=== PATIENT | female | born 1945 | race Caucasian/White ===

== ENCOUNTER → 2017-02-07 | Outpatient (CLI) | payer BC ==
[~2017-02-07] MED LIST: CLB100 PO; PRT/40 PO
--- NOTE | 2017-02-07 16:11 | MAMMOGRAPHY REPORT ---
BILATERAL DIGITAL SCREENING MAMMOGRAM WITH CAD: 02/07/2017 CLINICAL HISTORY: Routine screening. Patient has no complaints. TECHNIQUE: Current study was also evaluated with a Computer Aided Detection (CAD) system. Bilateral CC and MLO views were obtained. COMPARISON: Comparison is made to exams dated: 12/22/2015 mammogram, 12/03/2014 mammogram, 12/02/2013 emiliano mogram, 10/25/2012 mammogram, 10/24/2011 mammogram, and 10/18/2010 mammogram - [facility]. BREAST COMPOSITION: There are scattered areas of fibroglandular density in both breasts. FINDINGS: No suspicious masses, calcifications, or areas of architectural distortion are noted in ei ther breast. There has been no significant interval change compared to prior exams. There are stable postsurgical changes including architectural distortion from prior excisional biopsy in the right up per outer quadrant; a linear scar marker denotes a scar on the right upper outer breast. Bilateral b enign-appearing calcifications are not significantly changed. IMPRESSION: ACR BI-RADS CATEGORY 2: BENIGN There is no mammographic evidence of malignancy. A 1 year screening mammogram is recommended. The pa tient will receive written notification of the results. Approximately 10% of breast cancers are not detected with mammography. A negative mammographic report should not delay biopsy if a clinically suggestive mass is present. Wendy Sepulveda M.D. /:02/07/2017 15:39:31 Internet Manager: Sregio Kumar M, [facility] letter sent: Normal 1/2 BI-RADS Code: ACR BI-RADS Category 2: Benign
== END | disposition home or self-care (01) ==
LOC: C.MAMM 15:16
PROVIDERS: ATTEND Family Medicine
DX: Z12.31 Encounter for screening mammogram for malignant neoplasm of breast (principal)

== ENCOUNTER → 2017-04-30 | Outpatient (CLI) | payer BC ==
[~2017-04-30] MED LIST changes: +PANT40TA2 PO; -PRT/40 PO
--- NOTE | 2017-04-30 10:39 | DIAGNOSTIC IMAGING REPORT ---
CHEST 2 VIEWS ROUTINE CLINICAL HISTORY: COUGH,GASTRO-ESOPHAGEAL REFLUX dyspnea COMPARISON STUDY: 11/19/2008 FINDINGS: The bones soft tissues and hemidiaphragms are normal. The cardiomediastinal silhouette is normal. The lungs are clear. The pulmonary vasculature is normal. IMPRESSION: Negative chest. The above report was generated using voice recognition software. It may contain grammatical, syntax or spelling errors. Electronically signed by: Paul Paige M.D. 04/30/2017 10:37 AM Dictated Date/Time: 04/30/2017 10:37 AM
== END | disposition home or self-care (01) ==
LOC: C.LAB1850 10:19
PROVIDERS: ATTEND Family Medicine
DX: R05 Cough (principal); K21.9 Gastro-esophageal reflux disease without esophagitis

== ENCOUNTER 2018-01-03 12:48 | Inpatient (IN) | payer BC, OTHER ==
[~2018-01-03] VITALS: Ht 160 cm; Wt 103.0 kg
[2018-01-03 14:12] LABS: HEMATOCRIT 43.8 % (37-47); HEMOGLOBIN 14.2 g/dL (12.0-16.0); MEAN CELL VOLUME 87.8 fL (80-100); MEAN CORPUSCULAR HEMOGLOBIN 28.5 pg (25-34); MEAN CORPUSCULAR HGB CONC 32.4 g/dl (32-36); MEAN PLATELET VOLUME 10.6 fL (7.4-10.4); PLATELET COUNT 289 K/uL (130-400); RED CELL DISTRIBUTION WIDTH CV 14.9 % (11.5-14.5); RED CELL DISTRIBUTION WIDTH SD 47.4 fL (36.4-46.3)
[2018-01-03] MEDS ORDERED: COEN75CA PO (14:18)
[2018-01-03] MEDS ORDERED: MULT-190 PO (14:18)
[2018-01-03 14:24] LABS: PTT PATIENT 23.8 SECONDS (21.0-31.0)
[2018-01-03 14:36] LABS: ALBUMIN 3.4 gm/dl (3.4-5.0); CALCIUM 8.8 mg/dl (8.5-10.1); CREATININE 0.63 mg/dl (0.60-1.20); POTASSIUM 4.9 mmol/L (3.5-5.1); TOTAL PROTEIN 7.5 gm/dl (6.4-8.2)
--- NOTE | 2018-01-03 14:43 | DIAGNOSTIC IMAGING REPORT ---
CT HEAD WITHOUT CONTRAST (CT) CLINICAL HISTORY: Visual disturbances COMPARISON STUDY: No previous studies for comparison. TECHNIQUE: Axial CT of the brain is performed from the vertex to the skull base. IV contrast was not administered for this examination. A dose lowering technique was utilized adhering to the principles of ALARA. CT DOSE: 537.48 mGy.cm FINDINGS: There is a 9 mm right posterior parietal vertex mass. This is likely extra-axial and possibly represent of a meningioma. MRI might be considered in follow-up for further evaluation. There is no evidence of midline shift. There is no acute hemorrhage. No calvarial fractures are visualized. There are patchy white matter hypodensities likely on a small vessel basis. There is a 15 mm round hypodensity within the left medial frontoparietal vertex. This likely represents either old infarct or focal atrophy. There is no evidence of pathologic ventricular dilatation. There is no evidence of acute sinusitis IMPRESSION: 1. 9 mm hyperdense mass within the right posterior parietal vertex. The findings are consistent with although not specific for meningioma. MRI the brain should be considered in follow-up for further evaluation. 2. 15 mm hypodensity within the left medial and parietal vertex. This likely represents either an old infarct, or focal atrophy. 3. No CT evidence of acute cortical infarction Electronically signed by: Soren Godoy M.D. 01/03/2018 2:41 PM Dictated Date/Time: 01/03/2018 2:38 PM
[2018-01-03] MEDS ORDERED: ALUMINUM/MAGNESIUM/SIMETH (MAALOX MAX) 30 ML UDC PO PRN (16:00)
[2018-01-03] MEDS ORDERED: PHARMACIST DISCHARGE MED REC CONSULT PRN (16:00)
[2018-01-03] MEDS ORDERED: ONDANSETRON INJ 2 MG/ML 2 ML VIAL IV PRN (16:00)
[2018-01-03] MEDS ORDERED: ZOLPIDEM TARTRATE 5 MG TAB PO PRN (16:00)
[2018-01-03] MEDS ORDERED: MAGNESIUM HYDROXIDE SUSP 30 ML UDC PO PRN (16:00)
[2018-01-03] MEDS ORDERED: ACETAMINOPHEN 325 MG TAB PO PRN (16:00)
[2018-01-03] MEDS ORDERED: POLYETHYLENE (MIRALAX) 17 GM PACK PO PRN (16:00)
[2018-01-03] MEDS ORDERED: HydrALAZINE HCL 20 MG/ML VIAL IV. PRN (16:00)
--- NOTE | 2018-01-03 16:52 | DIAGNOSTIC IMAGING REPORT ---
MR ANGIOGRAM OF THE BRAIN CLINICAL HISTORY: Blurry vision. COMPARISON STUDY: MRI of the brain performed concurrently on 01/03/2018. TECHNIQUE: 3-D [id number] MR angiography of the intracranial circulation is performed. 3-D tumble views are created and assessed. IV contrast was not administered for this examination. FINDINGS: There is origin of the right posterior cerebral artery. The internal carotid arteries are widely patent bilaterally, as are the anterior and middle cerebral arteries. The vertebrobasilar system and posterior cerebral arteries are widely patent. The left vertebral artery is dominant. There is no aneurysm, high-grade stenosis, or focal vessel cutoff seen throughout the intracranial circulation. The brain parenchyma is normal as visualized. IMPRESSION: Unremarkable MR angiogram of the brain. Electronically signed by: Ian Regalado M.D. 01/03/2018 4:51 PM Dictated Date/Time: 01/03/2018 4:49 PM
--- NOTE | 2018-01-03 16:57 | DIAGNOSTIC IMAGING REPORT ---
NECK MRA HISTORY: No onset] difficulty. Headache. Intracranial mass. TECHNIQUE: Oblz-it-wsytyc and gadolinium-enhanced MRA of the neck was performed both before and after the intravenous administration of contrast. All measurements were calculated based on NASCET criteria. The patient was administered 10.5 cc of intravenous Gadavist. COMPARISON STUDY: None. FINDINGS: The aortic arch and proximal great vessels are widely patent. There is no significant stenosis, occlusion, or dissection identified within the bilateral common carotid, internal carotid, or vertebral arteries. IMPRESSION: No significant stenosis, occlusion, or dissection identified within the carotid or vertebral arteries. Electronically signed by: Soren Godoy M.D. 01/03/2018 4:56 PM Dictated Date/Time: 01/03/2018 4:54 PM
--- NOTE | 2018-01-03 16:59 | DIAGNOSTIC IMAGING REPORT ---
MRI OF THE BRAIN COMBO CLINICAL HISTORY: Headache. Visual changes. COMPARISON STUDY: CT of the brain dated 01/03/2018. TECHNIQUE: MRI of the brain was performed utilizing various T1 and T2-weighted sequences in the axial, sagittal, and coronal planes. Contrast-enhanced sequences were acquired following the administration of 10.5 cc of Gadavist. FINDINGS: Brain parenchyma: There are age-related involutional changes noting moderate subcortical and periventricular microangiopathic disease. There is no hemorrhage or mass effect. There is no restricted diffusion to suggest acute ischemia. There is a 1.0 cm homogeneously enhancing extra-axial nodule along the posterior right convexity seen on axial image #17. This demonstrates a dural tail and is typical in appearance for a meningioma. No additional enhancing mass lesion is identified on the postcontrast images. There is a 1.9 x 1.3 cm ovoid CSF signal intensity structure along the left aspect of the posterior falx seen on axial image #19. This follows cerebrospinal fluid signal intensity on all sequences with no associated enhancement. West[place]-white matter differentiation is preserved. No extra-axial fluid collection is seen. The cerebellar tonsils are normal in configuration. Ventricles, sulci, and cisterns: Prominent secondary to involutional change. Pituitary and sella: Unremarkable. Intracranial vasculature: Normal flow voids are maintained at the skull base. Orbits: The bony orbits are grossly intact. Orbital contents are normal in appearance. Sinuses and mastoids: There is mild mucosal thickening within the right sphenoid sinus and the left ethmoid sinuses. The remaining paranasal sinuses are clear. There is trace fluid in the left mastoid air cells. Calvarium: Unremarkable. Cervical cord: Partially visualized cervical spinal cord is normal in morphology and signal intensity. IMPRESSION: 1. No acute intracranial abnormality. 2. There is a 1.0 cm homogeneously enhancing extra-axial nodule along the right posterior convexity. This is typical appearance for a meningioma and there is no associated mass effect. 3. There is a 1.9 cm ovoid structure along the left aspect of the midline falx. This follows cerebrospinal fluid signal intensity on all sequences and likely represents a small arachnoid cyst, or less likely encephalomalacia. 4. Precautionary 6 month follow-up examination is recommended for reassessment of both findings. Electronically signed by: Ian Regalado M.D. 01/03/2018 4:58 PM Dictated Date/Time: 01/03/2018 4:53 PM
[2018-01-03] MEDS ORDERED: GADAVIST IV PRN ×2 (17:00)
--- NOTE | 2018-01-03 17:21 | EMERGENCY ROOM VISIT NOTE ---
History Report prepared by Nayana: Aby Russell Under the Supervision of: Dr. Canelo Pollard M.D. First contact with patient: 13:56 Chief Complaint: NEURO SYMPTOMS Stated Complaint: PRECURSOR TO STROKE Nursing Triage Summary: She relates at 0730 she was not able to see the top of letters on the television. Currently she has not visual disturbance. She denies all over symptoms. History of Present Illness The patient is a 72 year old female who presents to the Emergency Room with complaints of resolved loss of vision that started at 0730 this morning. The patient reports she was unable to see the top of words when she closed her left eye. She states when she had both eyes open, her vision seemed blurry. She reports when she looked in the mirror "it didn't look right." The patient's mother has a history of macular degeneration and she was concerned it may be something similar so she went to see an side laster. She states the doctor told her everything looked fine and she was worried it may be something involving her brain and was sent to the ED. The patient denies headache, numbness or weakness on one side of her body, trouble with speech or swallowing , chest pain, heart palpitations, vomiting, diarrhea, or abdominal pain. The patient reports she has no history of high blood pressure or diabetes. She states she takes Celebrex for arthritis and Proposal for indigestion. Source of History: patient Onset: 0730 this morning Position: eye (right) Quality: other (Loss of vision) Timing: resolved Modifying Factors (Relieving): other (Closing the right eye) Associated Symptoms: No headache, No chest pain, No vomiting, No abdominal pain, No diarrhea, No weakness, No numbness Note: Denies trouble with speech or swallowing. Review of Systems See HPI for pertinent positives & negatives. A total of 10 systems reviewed and were otherwise negative. Past Medical & Surgical Medical Problems: (1) Arthritis (2) Indigestion (3) Tia or CVA Family History FHx: gallbladder disease Heart disease Social History Smoking Status: Never Smoker Smokeless Tobacco Use: No Drug Use: none Current/Historical Medications Scheduled Celecoxib (Celebrex), 100 MG PO QPM Coenzyme Q10 (Ubidecarenone) (Co Q-10), 1 CAP PO DAILY Ocuvite Preservision (Ocuvite Preservision), 1 TAB PO DAILY Pantoprazole (Pantoprazole Sodium), 40 MG PO QPM Allergies Coded Allergies: No Known Allergies (Verified , 01/03/18) Physical Exam Vital Signs Date Time Temp Pulse Resp B/P (MAP) Pulse Ox O2 Delivery O2 Flow Rate FiO2 01/03/18 17:03 77 16 197/97 97 Room Air 01/03/18 14:51 70 20 205/101 96 Room Air 01/03/18 13:52 68 20 184/103 98 Room Air 01/03/18 13:41 76 20 168/110 98 Room Air 01/03/18 13:13 75 01/03/18 12:52 36.4 71 20 193/109 96 Room Air 01/03/18 12:52 Room Air Physical Exam Constitutional: Vital signs reviewed. Eyes: Pupils are equal round reactive to light. Conjunctiva are noninjected. ENT: Pharynx is clear without erythema or exudate. Mucous membranes are moist. Neck supple without meningeal signs. Respiratory: Clear to auscultation bilaterally. Breath sounds are equal bilaterally. Cardiovascular: Regular rate and rhythm. No rubs or gallops. GI: Soft, nondistended and nontender. Bowel sounds are present. Musculoskeletal: No peripheral edema. No lower extremity tenderness. Integumentary: No cyanosis. Neurological: The patient is awake and alert. Cranial nerves II-XII are intact. Motor is 5 out of 5 all extremities. Sensation is intact to light touch all extremities. Normal speech. No pronator drift. Visual chao tested by confrontation without deficits. Psychiatric: Normal affect. Medical Decision & Procedures ER Provider Diagnostic Interpretation: Radiology results as stated below per my review and the radiologist's interpretation: CT HEAD WITHOUT CONTRAST (CT) CLINICAL HISTORY: Visual disturbances COMPARISON STUDY: No previous studies for comparison. TECHNIQUE: Axial CT of the brain is performed from the vertex to the skull base. IV contrast was not administered for this examination. A dose lowering technique was utilized adhering to the principles of ALARA. CT DOSE: 537.48 mGy.cm FINDINGS: There is a 9 mm right posterior parietal vertex mass. This is likely extra-axial and possibly represent of a meningioma. MRI might be considered in follow-up for further evaluation. There is no evidence of midline shift. There is no acute hemorrhage. No calvarial fractures are visualized. There are patchy white matter hypodensities likely on a small vessel basis. There is a 15 mm round hypodensity within the left medial frontoparietal vertex. This likely represents either old infarct or focal atrophy. There is no evidence of pathologic ventricular dilatation. There is no evidence of acute sinusitis IMPRESSION: 1. 9 mm hyperdense mass within the right posterior parietal vertex. The findings are consistent with although not specific for meningioma. MRI the brain should be considered in follow-up for further evaluation. 2. 15 mm hypodensity within the left medial and parietal vertex. This likely represents either an old infarct, or focal atrophy. 3. No CT evidence of acute cortical infarction Electronically signed by: Soren Godoy M.D. 01/03/2018 2:41 PM Dictated Date/Time: 01/03/2018 2:38 PM NECK MRA HISTORY: No onset] difficulty. Headache. Intracranial mass. TECHNIQUE: Olta-wt-eaylhn and gadolinium-enhanced MRA of the neck was performed both before and after the intravenous administration of contrast. All measurements were calculated based on NASCET criteria. The patient was administered 10.5 cc of intravenous Gadavist. COMPARISON STUDY: None. FINDINGS: The aortic arch and proximal great vessels are widely patent. There is no significant stenosis, occlusion, or dissection identified within the bilateral common carotid, internal carotid, or vertebral arteries. IMPRESSION: No significant stenosis, occlusion, or dissection identified within the carotid or vertebral arteries. Electronically signed by: Soren Godoy M.D. 01/03/2018 4:56 PM Dictated Date/Time: 01/03/2018 4:54 PM MR ANGIOGRAM OF THE BRAIN CLINICAL HISTORY: Blurry vision. COMPARISON STUDY: MRI of the brain performed concurrently on 01/03/2018. TECHNIQUE: 3-D tzbw-oq-teherj MR angiography of the intracranial circulation is performed. 3-D tumble views are created and assessed. IV contrast was not administered for this examination. FINDINGS: There is origin of the right posterior cerebral artery. The internal carotid arteries are widely patent bilaterally, as are the anterior and middle cerebral arteries. The vertebrobasilar system and posterior cerebral arteries are widely patent. The left vertebral artery is dominant. There is no aneurysm, high-grade stenosis, or focal vessel cutoff seen throughout the intracranial circulation. The brain parenchyma is normal as visualized. IMPRESSION: Unremarkable MR angiogram of the brain. Electronically signed by: Ian Regalado M.D. 01/03/2018 4:51 PM Dictated Date/Time: 01/03/2018 4:49 PM MRI OF THE BRAIN COMBO CLINICAL HISTORY: Headache. Visual changes. COMPARISON STUDY: CT of the brain dated 01/03/2018. TECHNIQUE: MRI of the brain was performed utilizing various T1 and T2-weighted sequences in the axial, sagittal, and coronal planes. Contrast-enhanced sequences were acquired following the administration of 10.5 cc of Gadavist. FINDINGS: Brain parenchyma: There are age-related involutional changes noting moderate subcortical and periventricular microangiopathic disease. There is no hemorrhage or mass effect. There is no restricted diffusion to suggest acute ischemia. There is a 1.0 cm homogeneously enhancing extra-axial nodule along the posterior right convexity seen on axial image #17. This demonstrates a dural tail and is typical in appearance for a meningioma. No additional enhancing mass lesion is identified on the postcontrast images. There is a 1.9 x 1.3 cm ovoid CSF signal intensity structure along the left aspect of the posterior falx seen on axial image #19. This follows cerebrospinal fluid signal intensity on all sequences with no associated enhancement. West[place]-white matter differentiation is preserved. No extra-axial fluid collection is seen. The cerebellar tonsils are normal in configuration. Ventricles, sulci, and cisterns: Prominent secondary to involutional change. Pituitary and sella: Unremarkable. Intracranial vasculature: Normal flow voids are maintained at the skull base. Orbits: The bony orbits are grossly intact. Orbital contents are normal in appearance. Sinuses and mastoids: There is mild mucosal thickening within the right sphenoid sinus and the left ethmoid sinuses. The remaining paranasal sinuses are clear. There is trace fluid in the left mastoid air cells. Calvarium: Unremarkable. Cervical cord: Partially visualized cervical spinal cord is normal in morphology and signal intensity. IMPRESSION: 1. No acute intracranial abnormality. 2. There is a 1.0 cm homogeneously enhancing extra-axial nodule along the right posterior convexity. This is typical appearance for a meningioma and there is no associated mass effect. 3. There is a 1.9 cm ovoid structure along the left aspect of the midline falx. This follows cerebrospinal fluid signal intensity on all sequences and likely represents a small arachnoid cyst, or less likely encephalomalacia. 4. Precautionary 6 month follow-up examination is recommended for reassessment of both findings. Electronically signed by: Ian Regalado M.D. 01/03/2018 4:58 PM Dictated Date/Time: 01/03/2018 4:53 PM Laboratory Results 01/03/18 13:20 01/03/18 13:20 Test 01/03/18 13:20 Red Blood Count 4.99 M/uL (4.2-5.4) Mean Corpuscular Volume 87.8 fL (80-100) Mean Corpuscular Hemoglobin 28.5 pg (25-34) Mean Corpuscular Hemoglobin Concent 32.4 g/dl (32-36) RDW Standard Deviation 47.4 fL (36.4-46.3) RDW Coefficient of Variation 14.9 % (11.5-14.5) Mean Platelet Volume 10.6 fL (7.4-10.4) Prothrombin Time 10.2 SECONDS (9.0-12.0) Prothromb Time International Ratio 1.0 (0.9-1.1) Activated Partial Thromboplast Time 23.8 SECONDS (21.0-31.0) Partial Thromboplastin Ratio 0.9 Anion Gap 3.0 mmol/L (3-11) Est Creatinine Clear Calc Drug Dose 94.3 ml/min Estimated GFR () 103.9 Estimated GFR (Non- 89.6 BUN/Creatinine Ratio 24.8 (10-20) Calcium Level 8.8 mg/dl (8.5-10.1) Total Bilirubin 0.3 mg/dl (0.2-1) Aspartate Amino Transf (AST/SGOT) 19 U/L (15-37) Alanine Aminotransferase (ALT/SGPT) 20 U/L (12-78) Alkaline Phosphatase 140 U/L (45-117) Total Protein 7.5 gm/dl (6.4-8.2) Albumin 3.4 gm/dl (3.4-5.0) Globulin 4.1 gm/dl (2.5-4.0) Albumin/Globulin Ratio 0.8 (0.9-2) Chemistry Specimen Hemolysis Laboratory results as reviewed by me. ECG Per My Interpretation Indication: other (neuro symptoms) Rate (beats per minute): 65 Rhythm: normal sinus Findings: other (no ST elevation, no PVC) ED Course 1356: The patient was evaluated in room B3B. A complete history and physical exam was performed. 1454: I checked on the patient. Her blood pressure has increased again. I discussed CT results with her and she is agreeable to MRI and MRA. 1505: I spoke with Dr. Fair about the patient and she is agreeable with the MRI and MRA. She recommended the patient be evaluated for further management by a hospitalist. 1512: I spoke with the patient about the recommendation by neuro and she is agreeable to hospitalization. 1520: I spoke with Dr. Hannah, [facility] Hospitalist. She agrees to evaluate the patient for further management. Medical Decision This is a 72-year-old female presents with visual complaints. Differential diagnosis includes TIA, CVA, intracranial mass, intracranial hemorrhage, carotid stenosis, intracardiac thrombus. I did perform a limited focused review of portions of the patient's old chart on the electronic medical record. The patient has had no recent pertinent visits to this hospital. I did evaluate the patient as noted above. Patient is presenting with visual complaints from the right eye. She has no symptoms currently. She is neurologically intact. She did see an side laster prior to arrival who felt her symptoms were not ophthalmologic but neurologic in origin. IV access was established. The patient was placed on a continuous surveillance monitor. I did order and personally review the patient's 12-lead EKG as described above. She does not have atrial fibrillation. I did order and review the patient's blood work as noted in the electronic medical record. Labs are unremarkable. I did order a CT of the head. I did review the images myself as well as the radiology report as described above. She does have a mass in the right parietal region as well as a hypodensity in the left parietal vertex. I did discuss the test results with the patient. I did discuss the case with the neurologist on-call, Dr. Padron. She recommended that the patient be hospitalized for further evaluation and that her transient visual loss was likely a vascular phenomenon. She agreed with my plan to obtain MRI of the brain as well as MRI of the head and neck. I did order the MRIs. I did discuss the plan with the patient. I did discuss the case with the hospitalist and case management specialist. Medication Reconcilliation Current Medication List: was personally reviewed by me Blood Pressure Screening Patient's blood pressure: Elevated blood pressure Blood pressure disposition: Referred to PCP Consults Time Called: 1515 Consulting Physician: Dr. Hannah [facility] Hospitalist Returned Call: [address] Hannah [facility] Hospitalist. She agrees to evaluate the patient for further management. Impression Primary Impression: Vision abnormalities Additional Impression: Brain mass Scribe Attestation The scribe's documentation has been prepared under my direct and personally reviewed by me in its entirety. I confirm that the note above accurately reflects all work, treatment, procedures, and medical decision making performed by me. Departure Information Dispostion Being Evaluated By Hospitalist Referrals Ramakrishna Tenorio D.O. (PCP) Patient Instructions My [facility] Problem Qualifiers
--- NOTE | 2018-01-03 17:36 | History and Physical ---
History & Physical Date of Service Jan 03, 2018. History & Physical TIA to rule out CVA., HTN obesity, [id number]
[2018-01-03 17:55] VITALS: O2SAT 98
[2018-01-03 18:23] VITALS: BP 174/97; PULSE 76; TEMP 36.3; Ht 160 cm; Wt 103.0 kg
[2018-01-03 18:30] VITALS: BP 174/97; PULSE 77; TEMP 36.3; O2SAT 96
--- NOTE | 2018-01-03 19:04 | HISTORY & PHYSICAL EXAMINATION ---
DATE OF ADMISSION: 01/03/2018 This is a level-3 inpatient admission of 35 minutes. CHIEF COMPLAINT: Temporary visual field defects about 4-5 hours. HISTORY OF PRESENT ILLNESS: The patient is a 72-year-old white female with a significant past medical history of arthritis, indigestion, come to the hospital Emergency Department because of the above chief complaint. The patient otherwise is a healthy white female, reported with a feeling of loss of vision in the morning at 7:30 when she was watching TV. She reported unable to see the top of the words when she closed her left eye. The patient reported she talked to her [id number] because the patient's mom has a history of macular degeneration; therefore, she was concerned and called to math professor's office. The patient was evaluated in ophthalmology office, evaluated and tule out retinal detachment macular degeneration, and she was referred to hospital Emergency Room. Around 11:00 in arriving to the Emergency Room, the visual field defect was totally resolved. Head CT was done in the Emergency Room which shows 9 mm meningioma and 15 mm old stroke. Otherwise, the patient has not any complaint. The patient has mild cough. Denies shortness of breath. Denied nausea, vomiting, abdominal pain, diarrhea, or constipation. Denied dysuria, urgency, frequencies. Denied chest pain, palpitations, lower extremity swelling. Denied facial droop, slurry speeches or local weakness. Denied skin rashes. PAST MEDICAL HISTORY: Like I mentioned include arthritis and indigestion. FAMILY HISTORY: Unremarkable. SOCIAL HISTORY: Never smoked. Denied alcohol abuse disorder. Denied illicit drug abuse. Denied tobacco abuse. HOME MEDICATIONS: Include Celecoxib 100 mg p.r.n. q.p.m. for the joint pain; CoQ10 one tab p.o. daily, Ocuvite 1 tab p.o. daily, Protonix 40 mg p.o. q.p.m. ALLERGIES: No known drug allergies. REVIEW OF SYSTEMS: Please see HPI, otherwise 14-point organ system review were negative. PHYSICAL EXAMINATION: VITAL SIGNS: Temperature is 36.4, pulse 71, respiratory rate 20, blood pressure 190/109, pulse ox was 96% in room air. GENERAL: The patient is a white female, obesity, BMI 41. HEAD: Normocephalic. EYES: Pupils equal, round, responds to light. EARS: Normal. NOSE: Normal. NECK: Supple. Thyroid no enlargement. Trachea midline. HEART: Regular rhythm. S1, S2. LUNGS: Decreased breathing sounds. There were no wheezing, rhonchi or crackles. ABDOMEN: Soft, obese, nontender. Bowel sound was positive. GENITOURINARY AND RECTAL: Deferred. BACK: Bilateral CVA was nontender. EXTREMITIES: Bilateral lower extremities: No clubbing. Homans sign was negative. Right lower extremity is somewhat bluish which she contributes to a fall from the trip 2 weeks ago. NEUROLOGICAL EVALUATION: Cranial nerves II-XII was intact. There were no local deficits. Muscle strength was 5/5. Vision field was roughly normal. LABORATORY STUDIES: WBC 7, hemoglobin 14, platelet 289. PT/INR was 10/1, potassium 4.9, chloride 106, BUN 16, creatinine 0.6. A1c is pending. Liver function test was within normal limits. EKG was done in the Emergency Room which shows normal sinus rhythm. There were no obvious ST-T wave changes. IMAGING STUDIES: The head CT in the Emergency Room which shows 9 mm hyperdense mass in the right posterior parietal vertex consistent with meningioma, and 15 mm hypodensity in the medial aspect of parietal vertex likely represent old infarctions. No CT evidence of acute cortical infarction. ASSESSMENT AND PLAN: A 72-year-old white female with the conditions as below: 1. Possible TIA, need to rule out CVA. 2. Accelerated hypertension. 3. History of arthritis. 4. Meningioma. 5. History of gastroesophageal reflux disease. PLAN: 1. Because the patient has obvious possible TIA and need to rule out CVA, it will be tele admission and will keep permissive hypertension. We will order hydralazine for systolic more than 220. We will check HbA1c, check a fasting lipid panel and gradually lower the blood pressure after permissive hypertension period. 2. We will have neurology consultation and will have CVA protocol, NIH stroke scale q. 4 hours, follow on lab tomorrow. Make sure has started aspirin already. We will follow on neuro input. 3. GI and DVT prophylaxis is covered. 4. Discussed with the patient and family about her conditions and care plan. I answered all questions. MANISH
[2018-01-03] MEDS: SODIUM CHLORIDE 0.9% 1000ML 1,000 ML IV SCH (19:27)
[2018-01-03 20:02] VITALS: BP 173/90; PULSE 76; TEMP 36.6; O2SAT 95
[2018-01-03] MEDS ORDERED: PANTOprazole SOD 40 MG TAB PO SCH (21:00)
[2018-01-03] MEDS ORDERED: ENOXAPARIN 40 MG/0.4 ML SYR SC SCH (22:00)
[2018-01-03 23:14] VITALS: BP 162/89; PULSE 79; TEMP 36.6; O2SAT 96
[2018-01-04 03:51] VITALS: BP 157/90; PULSE 74; TEMP 36.8; O2SAT 95
[2018-01-04 05:55] LABS: HEMOGLOBIN A1C 5.7 % (4.5-5.6)
[2018-01-04 06:36] LABS: BASO % 0.7 %; BASO ABS # 0.05 K/uL (0-0.2); EOS % 4.1 %; EOS ABS # 0.28 K/uL (0-0.5); HEMATOCRIT 41.6 % (37-47); HEMOGLOBIN 13.6 g/dL (12.0-16.0); IG# 0.01 K/uL (0.00-0.02); LYMPH % 23.9 %; LYMPH ABS # 1.61 K/uL (1.2-3.4); MEAN CORPUSCULAR HEMOGLOBIN 28.5 pg (25-34); MEAN CORPUSCULAR HGB CONC 32.7 g/dl (32-36); MEAN PLATELET VOLUME 10.4 fL (7.4-10.4); MONO % 7.4 %; NEUT % 63.8 %; PLATELET COUNT 262 K/uL (130-400); RED CELL DISTRIBUTION WIDTH CV 14.8 % (11.5-14.5); RED CELL DISTRIBUTION WIDTH SD 46.9 fL (36.4-46.3); WHITE BLOOD COUNT 6.75 K/uL (4.8-10.8)
[2018-01-04 07:14] LABS: CALCIUM 8.5 mg/dl (8.5-10.1); CREATININE 0.61 mg/dl (0.60-1.20); POTASSIUM 3.8 mmol/L (3.5-5.1)
[2018-01-04 07:40] VITALS: BP 149/87; PULSE 80; TEMP 36.7; O2SAT 94
[2018-01-04] MEDS ORDERED: ASPIRIN 81 MG ECTAB PO SCH (09:00)
--- NOTE | 2018-01-04 10:35 | Neurology Consultation ---
Neurology Consultation Date of Consultation: Jan 04, 2018. Attending Physician: Carlos Rivera MD, PhD Primary Care Physician: Ramakrishna Tenorio D.O. Reason for Consultation: Episode of vision loss History of Present Illness Source: patient, hospital records The patient is a 72-year-old female who complains of an episode of vision loss that occurred suddenly yesterday morning at around 7 a.m.. She was watching television at the time and recalls being unable to see text on the upper right hand side of the screen. She then went to the bathroom mirror and realize that she was unable to see the right side of her face very well. She denies experiencing darkness in her vision or the perception of a shade coming over her field of view. She denies experiencing any associated headache, change in speech, facial weakness, or weakness of the limbs. She denies experiencing any associated numbness. The patient was initially evaluated by her cold food packer and told that she did not find any evidence of significant ocular disease. She was referred to the hospital for further assessment of a possible stroke or TIA. The patient's symptoms resolved by the time she was assessed in the emergency department. She does not recall a history of similar episodes in the past. She was notably hypertensive in the emergency department with a blood pressure of 193/109. She has never had hypertensive urgency in the past. She has been taking Celebrex for arthritis. The patient denies any other significant health problems recently. A CT of the head was negative for acute process. There was a suggestion of a small meningioma overlying the right parietal cortex as well as a 15 millimeter hypodensity along the left medial aspect of the parietal vertex. MR angiography of the head and neck were unremarkable. A follow-up brain MRI confirmed the presence of a 1 centimeter meningioma along the right posterior convexity without associated mass effect. There is a 1.9 centimeter ovoid structure along the left aspect of the midline falx possibly consistent with a small arachnoid cyst. I reviewed the images as well as the radiologist's interpretation of these tests and agree. A follow-up brain MRI was recommended in 6 months to ensure stability. The patient has been started on daily aspirin. Her blood pressure has been improving although remains modestly elevated. Patient denies experiencing any headache or vision loss at this time. Past Medical/Surgical History Medical Problems: (1) Brain mass Status: Acute (2) Vision abnormalities Status: Acute Family History Family history notable for heart disease Social History Smokeless Tobacco Use: No Drug Use: none Allergies Coded Allergies: No Known Allergies (Verified , 01/03/18) Current Inpatient Medications Current Inpatient Medications Medications (Trade) Dose Ordered Sig/Jazmin Route Start Time Stop Time Status Last Admin Dose Admin Enoxaparin Sodium (Lovenox Inj) 40 mg Q24H SC 01/03/18 22:00 02/02/18 21:59 01/03/18 21:10 40 MG Sodium Chloride 1,000 ml @ 50 mls/hr Q20H IV 01/03/18 16:00 02/02/18 15:59 01/03/18 19:27 50 MLS/HR Acetaminophen (Tylenol Tab) 650 mg Q4H PRN PO 01/03/18 16:00 02/02/18 15:59 Al Hydrox/Mg Hydrox/Simethicone (Maalox Max Susp) 15 ml Q4H PRN PO 01/03/18 16:00 02/02/18 15:59 Magnesium Hydroxide (Milk Of Magnesia Susp) 30 ml Q12H PRN PO 01/03/18 16:00 02/02/18 15:59 Zolpidem Tartrate (Ambien Tab) 5 mg HSZ PRN PO 01/03/18 16:00 02/02/18 15:59 Ondansetron HCl (Zofran Inj) 4 mg Q6H PRN IV 01/03/18 16:00 02/02/18 15:59 Aspirin (Ecotrin Tab) 81 mg QAM PO 01/04/18 09:00 02/03/18 08:59 01/04/18 07:24 81 MG Polyethylene (Miralax Powder Packet) 17 gm DAILY PRN PO 01/03/18 16:00 02/02/18 15:59 Miscellaneous Information (Pharmacist Discharge Med Rec Consult) 1 ea UD PRN N/A 01/03/18 16:00 02/02/18 15:59 Hydralazine HCl (HydrALAZINE INJ) 20 mg Q6 PRN IV. 01/03/18 16:00 02/02/18 15:59 Pantoprazole Sodium (Protonix Tab) 40 mg QPM PO 01/03/18 21:00 02/02/18 20:59 01/03/18 21:10 40 MG Gadobutrol (Gadavist) 10.5 mmol UD PRN IV 01/03/18 17:00 01/07/18 16:59 Gadobutrol (Gadavist) 10.5 mmol UD PRN IV 01/03/18 17:00 01/07/18 16:59 Review of Systems Constitutional: No fever chills Eyes: As per history of present illness ENT: No vertigo or hearing loss Cardiovascular: No chest pain or palpitations Respiratory: No coughing or shortness of breath Musculoskeletal: No myalgia Neurological: As per history of present illness Skin: No rash lesions or sores A full 10 point review of systems was obtained from this patient with pertinent positives and negatives described in history of present illness and otherwise listed above. All remaining systems were reviewed and are negative. Physical Exam Vital Signs (Past 24 Hrs): Date Time Temp Pulse Resp B/P (MAP) Pulse Ox O2 Delivery O2 Flow Rate FiO2 01/04/18 08:00 Room Air 01/04/18 07:40 36.7 80 18 149/87 (107) 94 Room Air 01/04/18 03:51 36.8 74 18 157/90 (112) 95 Room Air 01/03/18 23:59 Room Air 01/03/18 23:14 36.6 79 18 162/89 (113) 96 Room Air 01/03/18 20:02 36.6 76 20 173/90 (117) 95 Room Air 01/03/18 20:00 Room Air 01/03/18 18:30 36.3 77 18 174/97 (122) 96 Room Air 01/03/18 18:23 36.3 76 18 174/97 Room Air 96.0 01/03/18 17:55 77 16 196/111 98 01/03/18 17:03 77 16 197/97 97 Room Air 01/03/18 14:51 70 20 205/101 96 Room Air 01/03/18 13:52 68 20 184/103 98 Room Air 01/03/18 13:41 76 20 168/110 98 Room Air 01/03/18 13:13 75 01/03/18 12:52 36.4 71 20 193/109 96 Room Air 01/03/18 12:52 Room Air Patient is a well-developed, well-nourished elderly female. She is alert and fully oriented. Recent and remote memory intact. Attention and concentration normal. Patient exhibits a normal spontaneous speech pattern as well as an age- appropriate fund of knowledge. Visual chao full to confrontation. Visual acuity normal. Pupils equal round react to light and accommodation. Eye movements normal. No nystagmus. Facial sensation and expression are intact. No facial droop. Hearing intact bilaterally. Palate elevates to midline. Shoulder shrug strength intact. Tongue protrudes to midline. Sensation intact to all modalities in all 4 limbs. Deep tendon reflexes are intact and symmetrical. Plantar responses downgoing bilaterally. There is no dysdiadochokinesia or dysmetria of [id number] or heel to nam bilaterally. Ophthalmoscopic examination reveals normal-appearing optic discs and posterior segments. No papilledema or hemorrhages. Carotid pulses normal bilaterally, no bruits to auscultation. Gait and station normal. Patient exhibits normal muscle strength and tone for all 4 limbs. No atrophy. No abnormal movements observed. Laboratory Results Past 24 Hours: 01/04/18 06:15 Red Blood Count 4.78, Mean Corpuscular Volume 87.0, Mean Corpuscular Hemoglobin 28.5, Mean Corpuscular Hemoglobin Concent 32.7, Mean Platelet Volume 10.4, Neutrophils (%) (Auto) 63.8, Lymphocytes (%) (Auto) 23.9, Monocytes (%) (Auto) 7.4, Eosinophils (%) (Auto) 4.1, Basophils (%) (Auto) 0.7, Neutrophils # (Auto) 4.30, Lymphocytes # (Auto) 1.61, Monocytes # (Auto) 0.50, Eosinophils # (Auto) 0.28, Basophils # (Auto) 0.05 01/04/18 06:15 Test 01/03/18 13:20 01/04/18 06:15 Prothrombin Time 10.2 SECONDS (9.0-12.0) Prothromb Time International Ratio 1.0 (0.9-1.1) Activated Partial Thromboplast Time 23.8 SECONDS (21.0-31.0) Partial Thromboplastin Ratio 0.9 Estimated Average Glucose 117 mg/dl Hemoglobin A1c 5.7 % (4.5-5.6) Total Bilirubin 0.3 mg/dl (0.2-1) Aspartate Amino Transf (AST/SGOT) 19 U/L (15-37) Alanine Aminotransferase (ALT/SGPT) 20 U/L (12-78) Alkaline Phosphatase 140 U/L (45-117) Total Protein 7.5 gm/dl (6.4-8.2) Albumin 3.4 gm/dl (3.4-5.0) Globulin 4.1 gm/dl (2.5-4.0) Albumin/Globulin Ratio 0.8 (0.9-2) Chemistry Specimen Hemolysis Hepatitis C Antibody Screen NEG (NEG) White Blood Count 6.75 K/uL (4.8-10.8) Red Blood Count 4.78 M/uL (4.2-5.4) Hemoglobin 13.6 g/dL (12.0-16.0) Hematocrit 41.6 % (37-47) Mean Corpuscular Volume 87.0 fL (80-100) Mean Corpuscular Hemoglobin 28.5 pg (25-34) Mean Corpuscular Hemoglobin Concent 32.7 g/dl (32-36) Platelet Count 262 K/uL (130-400) Mean Platelet Volume 10.4 fL (7.4-10.4) Neutrophils (%) (Auto) 63.8 % Lymphocytes (%) (Auto) 23.9 % Monocytes (%) (Auto) 7.4 % Eosinophils (%) (Auto) 4.1 % Basophils (%) (Auto) 0.7 % Neutrophils # (Auto) 4.30 K/uL (1.4-6.5) Lymphocytes # (Auto) 1.61 K/uL (1.2-3.4) Monocytes # (Auto) 0.50 K/uL (0.11-0.59) Eosinophils # (Auto) 0.28 K/uL (0-0.5) Basophils # (Auto) 0.05 K/uL (0-0.2) RDW Standard Deviation 46.9 fL (36.4-46.3) RDW Coefficient of Variation 14.8 % (11.5-14.5) Immature Granulocyte % (Auto) 0.1 % Immature Granulocyte # (Auto) 0.01 K/uL (0.00-0.02) Anion Gap 6.0 mmol/L (3-11) Est Creatinine Clear Calc Drug Dose 95.6 ml/min Estimated GFR () 105.0 Estimated GFR (Non- 90.6 BUN/Creatinine Ratio 21.0 (10-20) Calcium Level 8.5 mg/dl (8.5-10.1) Triglycerides Level 151 mg/dl (0-150) Cholesterol Level 149 mg/dl (0-200) HDL Cholesterol 37 mg/dl LDL Cholesterol, Calculated 82 mg/dl VLDL Cholesterol, Calculated 30 mg/dl Cholesterol/HDL Ratio 4.0 Impression This patient presents with a transient right superior quadrantanopia or possibly right hemianopia suggestive of a TIA potentially localizing to the left occipital region or slightly more anterior retrochiasmal pathways. Amaurosis fugax affecting the right ophthalmic artery also considered although her history seems more suggestive of a hemianopic defect rather than a monocular defect. Furthermore, she has no evidence of atherosclerotic disease on MR angiography of the head or neck. Patient was notably hypertensive at the time of presentation which would be a risk factor for stroke or TIA in her case. She remains asymptomatic this morning. Plan I agree with daily low-dose aspirin. Patient may wish to discuss discontinuation of Celebrex with her primary care physician given the possibility that nonsteroidal anti-inflammatory drugs can interact with aspirin therapy. Recent literature on this issue may be inconclusive, however. No further neurological recommendations at this time. Please contact me if I may be of further assistance.
[2018-01-04 11:44] VITALS: BP 156/92; PULSE 75; TEMP 37; O2SAT 96
[2018-01-04] MEDS: SODIUM CHLORIDE 0.9% 1000ML 1,000 ML IV SCH (12:00)
[2018-01-04] MEDS ORDERED: ASPI-461 PO (12:21)
--- NOTE | 2018-01-04 12:21 | Discharge Instructions ---
Discharge Instructions Date of Service Jan 04, 2018. Admission Reason for Admission: Tia Or Cva Discharge Discharge Diagnosis / Problem: tia Discharge Goals Goal(s): Decrease discomfort, Improve function, Increase independence, Improve disease control, Improve nutritional status, Learn about illness, Diagnostic testing, Therapeutic intervention, Prevent Disease Progression, Specific goals Activity Recommendations Activity Limitations: resume your previous activity . Instructions / Follow-Up Instructions / Follow-Up you possible have TIA with transient right superior quadrantanopia you need daily low-dose aspirin. Rx sent to your pharmacy you have 1.0 cm meningioma and 1.9 cm small arachnoid cyst, you need to have MRI reeval in 6 month to 1 year with pcp or neurologist discontinuation of Celebrex you have accelerated hypertension, is trends down, recommend check BP twice daily, and follow up with pcp to start medicine if need. call pcp if systolic BP>200, or diastolic BP >100 - you need to follow up with your primary care physician in 1 week, - take medication as instructed, never overdose or any misuse, or take with alcohol, because misuse of medicine may cause organ damage or , call me , or your primary care physician if have questions of discharge medicaitons. - call your primary care physician, or go to local emergency room if has any fever/chill, chest pain, shortness of breathing, nausea/vomiting/abdominal pain , facial droop/slurry speech/local weakness, or if has any questions. - fall precaution - diet as instructed - you need to follow up with your subspecialist, such as Dr. Dunham if need Risk Factors for Stroke: You can reduce your chances of stroke by working with your medical provider to adopt a healthy lifestyle. Some specific ways to lower your chance of stroke are: * If you are a smoker, now is the time to stop smoking cigarettes * If you are diabetic, improve the control of your blood sugars * Avoid excessive amounts of alcohol * Control high blood pressure * Lose weight if you are overweight * Be sure to lead an active lifestyle * Eat a healthy diet low in salt, cholesterol and fat You should know about other risk factors for stroke that you are unable to control. These include: * Age 55 years or older * Male gender * Certain racial groups: , or / * Family History of Stroke, Mini stroke or Heart Attack * Sickle Cell Disease Follow Up: It is important for you to keep your follow up appointments with your medical provider. Current Hospital Diet Patient's current hospital diet: Low Fat Diet Discharge Diet Recommended Diet: Low Fat Diet Pending Studies Studies pending at discharge: no Laboratory Results Hemoglobin A1c Test 01/03/18 13:20 Range/Units Estimated Average Glucose 117 mg/dl Hemoglobin A1c 5.7 H 4.5-5.6 % Lipid Panel Test 01/04/18 06:15 Range/Units Triglycerides Level 151 H 0-150 mg/dl Cholesterol Level 149 0-200 mg/dl HDL Cholesterol 37 mg/dl Cholesterol/HDL Ratio 4.0 LDL Cholesterol, Calculated 82 mg/dl Medical Emergencies . Who to Call and When: Medical Emergencies: Call 911 immediately if you experience any of the following warning signs and symptoms of Stroke: * Sudden numbness or weakness of the face, arm or leg, especially on one side of the body * Sudden confusion, trouble speaking or understanding * Sudden trouble seeing in one or both eyes * Sudden trouble walking, dizziness, loss of balance or coordination * Sudden severe headache with no cause Do not delay calling 911 if you experience any warning signs or symptoms of a stroke. Delay in seeking medical attention may affect what treatments can be given to you. . Non-Emergent Contact Non-Emergency issues call your: Primary Care Provider . . "Provider Documentation" section prepared by Carlos Rivera. . Stroke Core Measures Reason no t-PA for Stroke: Treatment not indicated Reason no antithrom by day 2: Treatment provided - N/A Reason no antithrom at D/C: Treatment provided - N/A Reason no statin at D/C: Treatment not indicated Reason no anticoag w/a fib: Treatment provided - N/A
[2018-01-04 12:23] VITALS: BP 156/92; PULSE 75; TEMP 37; O2SAT 96
--- NOTE | 2018-01-04 13:00 | Pharmacy Progress Note ---
Pharmacist Stroke Counseling Date of Service Jan 04, 2018. Scope Pharmacy has been consulted to provide medication discharge counseling for this patient admitted with ischemic stroke/hemorrhagic stroke/ transient ischemic attack as per the Pharmacist Discharge Counseling for Stroke Patients Protocol. Medications on Discharge New Medications: Aspirin (Aspirin) 81 Mg Tab 81 MG PO QAM for 30 Days, #30 TAB Continued Medications: Coenzyme Q10 (Ubidecarenone) (Co Q-10) 75 Mg Cap 1 CAP PO DAILY, CAP Ocuvite Preservision (Ocuvite Preservision) 1 Tab Tab 1 TAB PO DAILY, TAB Pantoprazole (Pantoprazole Sodium) 40 Mg Tab 40 MG PO QPM, #30 Discontinued Medications: Celecoxib (Celebrex) 100 Mg Cap 100 MG PO QPM, #30 Action The above medications, specifically Aspirin, has been reviewed in detail with the patient prior to discharge. This includes indication, common adverse reactions, drug interactions, and medication administration. Medication counseling has been employed using the teach-back method to ensure understanding. Patient's son, Bora is a PA-C, and he is going to help her buy a home blood pressure cuff to check her BP twice daily at home. Outcome The patient has demonstrated understanding of the medications. Please note, they are aware that the pharmacist will call them within 72 hours post-discharge to confirm that the appropriate medications are being taken and answer any further medication related questions the patient might have at that time. Contact information Individual to be contacted: Patient Phone number: [phone] Best time to call: anytime Thank you for allowing pharmacy to be involved in the care of this patient. Please call [phone] or [phone] with any additional questions
--- NOTE | 2018-01-04 15:26 | Discharge Summary ---
Discharge Summary Date of Service Jan 04, 2018. Discharge Summary Admission Date: Jan 03, 2018 at 16:11 Discharge Date: Jan 04, 2018 Discharge Disposition: Home Principal Diagnosis: TIA Problems/Secondary Diagnoses: 1.0 cm meningioma and 1.9 cm small arachnoid cyst, accelerated hypertension, i Immunizations: Have You Had Influenza Vaccine: Yes History of Tetanus Vaccine?: Unknown History of Pneumococcal: Yes History of Hepatitis B Vaccine: No Procedures: No Consultations: Neurology Medication Reconciliation New Medications: Aspirin (Aspirin) 81 Mg Tab 81 MG PO QAM for 30 Days, #30 TAB Continued Medications: Coenzyme Q10 (Ubidecarenone) (Co Q-10) 75 Mg Cap 1 CAP PO DAILY, CAP Ocuvite Preservision (Ocuvite Preservision) 1 Tab Tab 1 TAB PO DAILY, TAB Pantoprazole (Pantoprazole Sodium) 40 Mg Tab 40 MG PO QPM, #30 Discontinued Medications: Celecoxib (Celebrex) 100 Mg Cap 100 MG PO QPM, #30 Discharge Exam Doing well, needed to go home,, denied blurry vision, vision defects, Review of Systems: Constitutional: No fever, No chills, No sweats, No weight loss, No weakness , No fatigue, No problem reported Eyes: No worsening of vision, No eye pain, No redness, No discharge, No diplopia, No problem reported ENT: No hearing loss, No unusual epistaxis, No nasal symptoms, No sore throat, No tinnitus, No dental problems, No trouble swallowing, No problem reported Respiratory: No cough, No sputum, No wheezing, No shortness of breath, No dyspnea on exertion, No dyspnea at rest, No hemoptysis, No problem reported Cardiovascular: No chest pain, No orthopnea, No PND, No edema, No claudication, No palpitations, No problem reported Abdomen: No pain, No nausea, No vomiting, No diarrhea, No constipation, No GI bleeding, No problem reported Musculoskeletal: No joint pain, No muscle pain, No swelling, No calf pain, No problem reported Genitourinary - Female: No dysuria, No urinary frequency, No urinary urgency , No urinary incontinence, No urinary retention, No hematuria, No dysmenorrhea, No menorrhagia, No metrorrhagia, No rash, No vaginal bleeding, No vaginal discharge, No vaginal itching, No vulvodynia, No , No problem reported Neurologic: No memory loss, No paralysis, No weakness, No numbness/tingling , No vertigo, No balance problems, No problem reported Psychiatric: No depression symptoms, No anhedonism, No anxiety, No insomnia , No substance abuse, No problem reported Endocrine: No fatigue, No excessive thirst, No excessive urination, No problem reported Hematologic / Lymphatic: No abnormal bleeding/bruising, No clotting problems , No swollen lymph nodes, No night sweats, No problem reported Integumentary: No rash, No itch, No new/changing skin lesions, No color change, No bleeding, No problem reported Physical Exam: General Appearance: WD/WN, + obese Eyes: normal inspection, PERRL, EOMI ENT: hearing grossly normal Neck: supple, no adenopathy Respiratory/Chest: chest non-tender, normal breath sounds, no respiratory distress, + decreased breath sounds Cardiovascular: regular rate, rhythm, no edema, no gallop, no JVD Abdomen / GI: normal bowel sounds, non tender, soft, no organomegaly, no pulsatile mass, normal rectal exam Extremities: normal inspection, no calf tenderness, normal capillary refill , no pedal edema, normal range of motion 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 obvious possible TIA versus history of transient visual defect MRI has no CVA, HbA1c checked, she has no diabetic, discussed with her about lifestyle modifications to prevention of stroke, Which include better control of blood pressure, blood pressure at 130/70, she was having accelerated hypertension, has been trends down, discussed with patient about options of treatment for hypertension which include lifestyle modification, diet, and medication such as lisinopril, patient declined to start lisinopril now like to check blood pressure regularly and stopped blood pressure medicine if needed with primary care physician,, I agreed. Patient's cholesterol level was checked, total cholesterol 149 LDL 83, procainamide for TIA and for the prevention of CVA, the target LDL level should be less than 70, discuss with patient about start standing, she declined like to start studying with primary care physician in a follow-up visit, I agreed Patient agreed to take aspirin 81 mg p.o. daily Neurology Dr. Morris's input appreciated, Patient is discharged home in stable condition Instructions / Follow-Up you possible have TIA with transient right superior quadrantanopia you need daily low-dose aspirin. Rx sent to your pharmacy you have 1.0 cm meningioma and 1.9 cm small arachnoid cyst, you need to have MRI reeval in 6 month to 1 year with pcp or neurologist discontinuation of Celebrex you have accelerated hypertension, is trends down, recommend check BP twice daily, and follow up with pcp to start medicine if need. call pcp if systolic BP>200, or diastolic BP >100 - you need to follow up with your primary care physician in 1 week, - take medication as instructed, never overdose or any misuse, or take with alcohol, because misuse of medicine may cause organ damage or , call me , or your primary care physician if have questions of discharge medicaitons. - call your primary care physician, or go to local emergency room if has any fever/chill, chest pain, shortness of breathing, nausea/vomiting/abdominal pain , facial droop/slurry speech/local weakness, or if has any questions. - fall precaution - diet as instructed - you need to follow up with your subspecialist, such as Dr. Dunham if need Total Time Spent: Greater than 30 minutes This includes examination of the patient, discharge planning, medication reconciliation, and communication with other providers. Discharge Instructions Please refer to the electronic Patient Visit Report (Discharge Instructions) for additional information. Additional Copies To Ramakrishna Tenorio D.O.; Rufino Dunham M.D.
--- NOTE | 2018-01-04 17:39 | ECHOCARDIOGRAM REPORT ---
*NOTICE TO RECEIVING CONSTITUTION PARTY AGENCY This information is strictly Confidential and protected under [place] law. [place] law prohibits you from making any further disclosure of this information unless further disclosure is expressly permitted by the written consent of the person to whom it pertains or is authorized by law. A general authorization for the release of medical or other information is not sufficient for this purpose. Hospital accepts no responsibility if the information is made available to any other person, INCLUDING THE PATIENT. Interpretation Summary * Name: LILO MILLS Study Date: 01/04/2018 08:09 AM BP: 157/90 mmHg * Patient Location: .2T\S\E215\S\1 HR: 74 * : 1945 (M/d/yy) Gender: Female Height: 62 in * Age: 72 yrs Ethnicity: [place] Weight: 234 lb * Ordering Physician: Carlos Rivera * Referring Physician: Self, Referred * Performed By: Jeanne Thomas RDCS * * Reason For Study: TIA/CVA * BSA: 2.0 m2 * No cardiac source of emboli noted. * -- Conclusions -- * Left ventricular systolic function is normal. * Grade I diastolic dysfunction, (abnormal relaxation pattern). * The left atrium is mildly dilated. * Injection of contrast documented no interatrial shunt. * Right ventricular systolic pressure is normal. Procedure Details * A complete two-dimensional transthoracic echocardiogram was performed (2D, M-mode, Doppler and color flow Doppler). * A saline contrast injection was performed to assess for cardiac shunting. * The injection was performed through an intravenous line in the right arm. * The attending nurse who injected the saline contrast was Nel Oliveira RN. * A total of 20 cc of agitated saline was given. * A contrast injection of Definity was performed to improve assessment of LV function. * Contrast was injected into an intravenous site in the right arm. * One vial of Definity ultrasound contrast was diluted in normal saline to a total volume of 10 ml. A total of '1' ml of solution was administered during imaging. * Lot # [id number] of Definity utilized for procedure. * Expiration date . * The attending nurse who injected the contrast agent was Nel Oliveira RN. Left Ventricle * The left ventricle is normal in size. * There is normal left ventricular wall thickness. * Ejection Fraction = 60-65%. * Left ventricular systolic function is normal. * Grade I diastolic dysfunction, (abnormal relaxation pattern). * The left ventricular wall motion is normal. Right Ventricle * The right ventricle is normal in size and function. Atria * The left atrium is mildly dilated. * Right atrial size is normal. * Injection of contrast documented no interatrial shunt. Mitral Valve * The mitral valve is grossly normal. * Significant mitral regurgitation is absent. Tricuspid Valve * The tricuspid valve is not well visualized, but is grossly normal. * There is trace tricuspid regurgitation. * Right ventricular systolic pressure is normal. Aortic Valve * The aortic valve is normal in structure and function. * No hemodynamically significant valvular aortic stenosis. * There is no significant aortic regurgitation. Pulmonic Valve * The pulmonic valve is not well visualized. Great Vessels * The aortic root is normal size. Pericardium/Pleural * There is no pericardial effusion. Great Vessels * Normal inferior vena cava diameter and respiratory variation suggests normal central venous pressure. MMode 2D Measurements and Calculations IVSd 1.2 cm IVSs 1.4 cm LVIDd 3.8 cm LVIDs 2.3 cm LVPWd 1.0 cm LVPWs 1.5 cm IVS/LVPW 1.2 FS 39.6 % EDV(Teich) 62.1 ml ESV(Teich) 18.0 ml EF(Teich) 71.0 % EDV(cubed) 55.0 ml ESV(cubed) 12.1 ml EF(cubed) 78.0 % % IVS thick 15.6 % % LVPW thick 44.4 % LV mass(C)d 135.8 grams LV mass(C)dI 66.4 grams/m\S\2 LV mass(C)s 103.9 grams LV mass(C)sI 50.9 grams/m\S\2 SV(Teich) 44.0 ml SI(Teich) 21.5 ml/m\S\2 SV(cubed) 42.9 ml SI(cubed) 21.0 ml/m\S\2 Ao root diam 2.7 cm Ao root area 5.9 cm\S\2 ACS 2.0 cm LA dimension 4.3 cm LA/Ao 1.6 LVOT diam 2.0 cm LVOT area 3.1 cm\S\2 LVAd ap4 32.6 cm\S\2 LVLd ap4 8.2 cm EDV(MOD-sp4) 107.9 ml EDV(sp4-el) 109.8 ml LVAs ap4 16.4 cm\S\2 LVLs ap4 6.4 cm ESV(MOD-sp4) 37.0 ml ESV(sp4-el) 35.9 ml EF(MOD-sp4) 65.7 % EF(sp4-el) 67.3 % LVAd ap2 30.3 cm\S\2 LVLd ap2 8.5 cm EDV(MOD-sp2) 93.4 ml EDV(sp2-el) 92.2 ml LVAs ap2 14.7 cm\S\2 LVLs ap2 6.8 cm ESV(MOD-sp2) 29.7 ml ESV(sp2-el) 27.0 ml EF(MOD-sp2) 68.2 % EF(sp2-el) 70.7 % LVLd %diff 2.9 % EDV(MOD-bp) 101.4 ml LVLs %diff 5.6 % ESV(MOD-bp) 33.8 ml EF(MOD-bp) 66.6 % SV(MOD-sp4) 70.9 ml SI(MOD-sp4) 34.7 ml/m\S\2 SV(MOD-sp2) 63.8 ml SI(MOD-sp2) 31.2 ml/m\S\2 SV(MOD-bp) 67.6 ml SI(MOD-bp) 33.1 ml/m\S\2 SV(sp4-el) 73.8 ml SI(sp4-el) 36.1 ml/m\S\2 SV(sp2-el) 65.2 ml SI(sp2-el) 31.9 ml/m\S\2 Doppler Measurements and Calculations MV E max nate 108.4 cm/sec MV A max nate 140.2 cm/sec MV E/A 0.77 MV dec time 0.24 sec Ao V2 max 225.1 cm/sec Ao max PG 20.4 mmHg Ao max PG (full) 11.3 mmHg Ao V2 mean 143.4 cm/sec Ao mean PG 9.5 mmHg Ao mean PG (full) 4.5 mmHg Ao V2 VTI 42.4 cm AGUSTÍN(I,A) 2.2 cm\S\2 AGUSTÍN(I,D) 2.2 cm\S\2 AGUSTÍN(V,A) 2.1 cm\S\2 AGUSTÍN(V,D) 2.1 cm\S\2 LV V1 max PG 9.0 mmHg LV V1 mean PG 4.9 mmHg LV V1 max 150.2 cm/sec LV V1 mean 106.7 cm/sec LV V1 VTI 30.1 cm SV(Ao) 248.4 ml SI(Ao) 121.6 ml/m\S\2 SV(LVOT) 93.6 ml SI(LVOT) 45.8 ml/m\S\2 PA V2 max 124.2 cm/sec PA max PG 6.2 mmHg TR max nate 240.7 cm/sec
--- NOTE | 2018-01-07 14:51 | Pharmacy Progress Note ---
Pharmacist Post D/C Phone Note Date of phone call: Jan 07, 2018. Individual with whom pharmacist spoke to: Patient The following questions were reviewed during the phone call with responses listed below each: Can you tell me the medications that you are currently taking as well as when and how you take each medication? - aspirin 81 mg PO daily, protonix 40 mg PO daily When have you missed any doses of your medications? - no What side effects are you having from your medications? - none What questions do you have about your medications? - none What problems are you having obtaining your medications? - none When is your next appointment with your primary care doctor? - tomorrow, January 08 Additional comments: - stopped Celebrex secondary to interaction with aspirin As per the Pharmacist Discharge Counseling for Stroke Patients Protocol, this phone call has been completed within 72 hours of discharge. Thank you for allowing us to be involved in the care of this patient.
== END 2018-01-04 13:00 | disposition home or self-care (01) | DRG 69 ==
LOC: C.EDB 12:49 → C.2T 16:11 → ENRESERV 17:06 → C.2T 20:26
PROVIDERS: ADMIT Hospitalist; ATTEND Hospitalist
DX: G45.9 Transient cerebral ischemic attack, unspecified (principal); Z68.41 Body mass index [BMI] 40.0-44.9, adult; I10 Essential (primary) hypertension; D32.0 Benign neoplasm of cerebral meninges; G93.0 Cerebral cysts; R29.700 NIHSS score 0; M19.90 Unspecified osteoarthritis, unspecified site; K30 Functional dyspepsia; E66.9 Obesity, unspecified; Z79.899 Other long term (current) drug therapy

== ENCOUNTER 2025-03-07 18:25 | Observation (INO) ==
[2025-03-07 19:03] LABS: Hematocrit (blood only) 42.1 % (37.0-47.0); Hemoglobin 13.5 g/dl (12.0-16.0); Immature Granulocytes # (auto) 0.02 K/uL (0.01-0.20); Immature Granulocytes % (auto) 0.2 %; Mean Corpuscular Hemoglobin 27.3 pg (25.0-34.0); Mean Corpuscular Volume 85.2 fL (80.0-100.0); Platelet Count 262 K/uL (130-400); RDW Standard Deviation 46.5 fL (36.4-46.3); Red Blood Count 4.94 M/uL (4.20-5.40); White Blood Count 9.21 K/ul (4.8-10.8)
[2025-03-07 19:20] LABS: Alanine Aminotransferase 22.0 U/L (7-52); Albumin Globulin Ratio 1.2 (0.9-2); Albumin Level 3.7 gm/dl (3.4-5.0); Alkaline Phosphatase 119.0 U/L (34-104); Anion Gap 8.0 (3-11); Bilirubin,Total 0.5 mg/dl (0.2-1.0); Blood Urea Nitrogen 23.0 mg/dl (6-23); Calcium 9.4 mg/dl (8.6-10.3); Carbon Dioxide 26.0 mmol/L (21-32); Chloride 105.0 mmol/L (98-107); Creatinine Clr Calc Pharmacy 50.3 ml/min; Globulin 3.0 gm/dl (2.5-4.0); Glucose 126.0 mg/dl (70-99(Fasting)); Magnesium 1.9 mg/dl (1.7-2.4); Potassium 3.7 mmol/L (3.5-5.1); Sodium 139.0 mmol/L (136-145); Total Protein 6.7 gm/dl (6.0-8.3)
[2025-03-07] MEDS: OPTIRAY 320 125ml IV ONE (19:35)
--- NOTE | 2025-03-07 19:48 | Emergency Department Note ---
Impression & Plan TIA (transient ischemic attack), [facility] ED Provider Note NAME: LILO MILLS AGE: 79 SEX: F : 1945 ARRIVES VIA: Walk-In INFORMANT: Patient, ED PROVIDER(S): Ambar Mir MD CHIEF COMPLAINT: Confusion, speech difficulty, vision changes HPI: This is a 79-year-old female presenting for confusion, speech difficulty and vision changes. Patient was with her friends when she felt that her eyes were in pain. She wanted to go home so she got in her car. Patient then drove around the block 3 separate times. Her friends were concerned so they stopped her the third time. Patient told them that she did not know where her house was. She then had garbled speech, did not make sense. She reported not being able to see her friends face only the outline/broad shape. She quickly returned to baseline. She had previous episode few years ago of vision change/confusion as well. ROS: See above HPI for pertinent positives & negatives. A total of 10 systems reviewed and were otherwise negative. PAST MEDICAL HISTORY: See Below PAST SURGICAL HISTORY: See Below FAMILY HISTORY: See Below SOCIAL HISTORY: See Below HOME MEDICATIONS: See Below ALLERGIES: See Below VITALS: See Below PHYSICAL EXAMINATION: General: resting comfortably in no acute distress Head: Normocephalic and atraumatic Eyes: Normal inspection, extraocular muscles intact Ear, nose, throat: Normal external exam Neck: Normal range of motion Respiratory: lungs clear to auscultation bilaterally Cardiovascular: Regular rate/rhythm, no murmur GI: soft, nontender, no guarding or rebound Extremities: nontender, moves all extremities Neuro: The patient awake and alert, oriented x 3 appropriately conversive, no focal deficits, symmetric faces, cranial nerves II to XII grossly intact, no motor drift, Skin: Warm, dry, and intact MEDICAL DECISION MAKING: This is a 79-year-old female presenting for confusion, speech difficulty and vision changes. Patient appears clinically well at this time without any neurologic deficits or confusion. She is not remember this episode of driving around. Will do screening blood work, urinalysis and CT imaging to assess for stroke/TIA. - Bloodwork is reviewed showing no significant leukocytosis, anemia, electrolyte or creatinine abnormality. Urinalysis negative -CT imaging of the head, neck is currently negative -Based on transient episode, will admit to the hospital service for further TIA/stroke workup. Of note patient also significant PVCs on monitor which is new for patient after discussion with son. Differential diagnosis: TIA, stroke, UTI, cephalopathy Independent History obtained from: Friend and son Diagnostics interpreted by me: ECG: ECG independently interpreted by me with normal sinus rhythm with frequent PVCs, bigeminy, rate of 92, normal [place], normal QRS, normal QTc, no ST segment elevations consistent with STEMI criteria Cardiac Monitoring: An order was placed for continuous cardiac monitoring. The monitor shows a rate of 91 with sinus rhythm. Past Med/Surg History Problem List (Updated 03/08/25 @ 00:19 by Ambar Mir MD) Bigeminy (Acute) TIA (transient ischemic attack) (Acute) Nocturia Bladder ulcer Cervical stenosis (uterine cervix) Thickened endometrium Urinary frequency Pelvic pressure in female Encounter for pre-operative examination Indigestion Arthritis Medical History Bladder ulcer Osteoarthritis Prediabetes Per PCP records Hx of Clostridium difficile infection "many years ago", dx [facility], tx w/abx. GERD (gastroesophageal reflux disease) Well controlled and stable History of TIA (transient ischemic attack) ~2017>no residual effects HLD (hyperlipidemia) HTN (hypertension) Surgical History S/P cystoscopy History of hysteroscopy 05/2022 [facility] H/O dilation and curettage 2008, polyp Status post bilateral salpingo-oophorectomy (BSO) left serous cystadenoma 2008 H/O tubal ligation History of cataract surgery left/right History of cholecystectomy History of umbilical hernia repair during laparoscopy, surgeon cut into umbilical mesh from previous hernia sx, hospitalized for 8 including another repair of the umbilical hernia History of esophagogastroduodenoscopy (EGD) History of colonoscopy Family History Mother Hypertension Father COPD (chronic obstructive pulmonary disease) Heart disease Myocardial infarction Brother Coronary heart disease Other Colorectal cancer Diabetes No family history of adverse response to anesthesia Denies family history of Ovarian cancer Breast cancer Social History Smoking Status: Never smoker Second Hand Exposure: No; Do You Dip or Chew Tobacco: No; Hx Alcohol Use: No Hx Substance Use: No Preferred Language: Urdu Communication Ability: Effective Visual Impairment: No Limitations Director Safety Required: No Beliefs That Will Affect Care: None Current Living Situation: Alone Feels Safe at Home: Yes Safety Concerns: Feels Safe At This Time Assistive Devices: Glasses Allergies Allergies Allergy/AdvReac Type Severity Reaction Status Date / Time No Known Allergies Allergy Mild Verified 03/07/25 20:20 Home Meds Home Medications Medication Instructions Recorded Confirmed atorvastatin 10 mg tablet 10 mg PO HS 11/30/20 03/07/25 irbesartan 150 mg tablet 150 mg PO QAM 11/30/20 03/07/25 pantoprazole 40 mg tablet,delayed 40 mg PO QAM 11/30/20 03/07/25 release vit C 226 mg-vit E 90 mg-copper 1 cap PO QAM 11/30/20 03/07/25 0.8 mg-zinc oxide-lutein 5 mg capsule (PreserVision Lutein) cholecalciferol (vitamin D3) 25 50 mcg PO .2-3XWK 05/09/22 03/07/25 mcg (1,000 unit) capsule (Vitamin D3) tramadol 25 mg tablet 25 mg PO Q6H PRN Pain 08/13/24 03/07/25 diphenhydramine 25 1 tab PO HS 08/28/24 03/07/25 mg-acetaminophen 500 mg tablet (Acetaminophen PM) ergocalciferol (vitamin D2) 1,250 50,000 unit PO WK 03/07/25 03/07/25 mcg (50,000 unit) capsule (Vitamin D2) [id number]-[id number]-[id number] 1 tab PO DAILY 03/07/25 03/07/25 tablet (Multivitamin 50 Plus tablet) tirzepatide (weight loss) 2.5 2.5 mg subcut WK 03/07/25 03/07/25 mg/0.5 mL subcutaneous pen injector (Zepbound) Results & Data (ED) Vital Signs Vital Signs - 24 hr 03/07/25 18:27 03/07/25 18:42 03/07/25 19:00 Temperature 36.8 C Temperature Source Temporal Artery Scan Pulse Rate 71 84 81 Pulse Rate from SpO2 Sensor 79 Pulse Rhythm Regular Pulse Strength Normal Respiratory Rate 20 17 Respiratory Effort / Characteristics Non-Labored Spontaneous Respiratory Depth Normal Respiratory Pattern Regular Blood Pressure 151/80 H 144/86 H Blood Pressure Mean 103 119 Blood Pressure Position Lying Pulse Oximetry 96 95 Oxygen Delivery Method Room Air Sepsis Recent Fever Within 48 Hours No Sepsis New/Unexplained Change in Mental Status No Sepsis Action Taken by Nursing No Action Required 03/07/25 19:44 03/07/25 20:32 03/07/25 21:00 Temperature Temperature Source Pulse Rate 99 H 95 H 94 H Pulse Rate from SpO2 Sensor Pulse Rhythm Pulse Strength Respiratory Rate 19 20 Respiratory Effort / Characteristics Respiratory Depth Respiratory Pattern Blood Pressure 173/76 H 162/122 H Blood Pressure Mean 125 127 Blood Pressure Position Pulse Oximetry 96 98 Oxygen Delivery Method Sepsis Recent Fever Within 48 Hours Sepsis New/Unexplained Change in Mental Status Sepsis Action Taken by Nursing Laboratory Data 03/07/25 18:48 03/07/25 18:48 Lab Results 03/07/25 03/07/25 03/07/25 Range/Units 18:48 18:51 20:11 WBC 9.21 (4.8-10.8) K/ul RBC 4.94 (4.20-5.40) M/uL Hgb 13.5 (12.0-16.0) g/dl Hct 42.1 (37.0-47.0) % MCV 85.2 (80.0-100.0) fL MCH 27.3 (25.0-34.0) pg MCHC 32.1 (32.0-36.0) g/dL RDW Std Deviation 46.5 H (36.4-46.3) fL RDW Coeff of Brittany 15.1 H (11.5-14.5) % Plt Count 262 (130-400) K/uL MPV 10.9 (9.4-12.4) fL Immature Gran % (Auto) 0.2 % Neut % (Auto) 72.5 % Lymph % (Auto) 14.0 % Metcalfe % (Auto) 8.1 % Eos % (Auto) 5.0 % Baso % (Auto) 0.2 % Neut # (Auto) 6.67 H (1.40-6.50) K/uL Lymph # (Auto) 1.29 (1.20-3.40) K/uL Metcalfe # (Auto) 0.75 H (0.11-0.59) K/uL Eos # (Auto) 0.46 (0.00-0.50) K/uL Baso # (Auto) 0.02 (0.00-0.20) K/uL Immature Gran # (Auto) 0.02 (0.01-0.20) K/uL PT 11.3 (9.0-12.0) Seconds INR 1.1 (0.9-1.1) APTT 26 (21-31) Seconds PTT Ratio 1.0 Sodium 139 (136-145) mmol/L Potassium 3.7 (3.5-5.1) mmol/L Chloride 105 (98-107) mmol/L Carbon Dioxide 26 (21-32) mmol/L Anion Gap 8 (3-11) BUN 23 (6-23) mg/dl Creatinine 0.96 (0.6-1.2) mg/dl Est Cr Clr Drug Dosing 50.3 ml/min eGFR 60.18 BUN/Creatinine Ratio 24.0 H (10-20) Glucose 126 H (70-99(Fasting)) mg/dl POC Glucose 123 H (70-99) mg/dl Calcium 9.4 (8.6-10.3) mg/dl Magnesium 1.9 (1.7-2.4) mg/dl Total Bilirubin 0.5 (0.2-1.0) mg/dl AST 27 (13-39) U/L ALT 22 (7-52) U/L Alkaline Phosphatase 119 H (34-104) U/L Troponin I High Sens 9.5 (0-14) pg/ml Total Protein 6.7 (6.0-8.3) gm/dl Albumin 3.7 (3.4-5.0) gm/dl Globulin 3.0 (2.5-4.0) gm/dl Albumin/Globulin Ratio 1.2 (0.9-2) Urine Color Yellow Urine Appearance Clear (Clear) Urine pH 6.0 (4.5-7.5) Ur Specific Hamilton 1.026 (1.000-1.030) Urine Protein Negative (Negative) Urine Glucose (UA) Negative (Negative) Urine Ketones Negative (Negative) Urine Blood Trace H (Negative) Urine Nitrite Negative (Negative) Urine Bilirubin Negative (Negative) Urine Urobilinogen Negative (Negative) Ur Leukocyte Esterase Trace H (Negative) Urine WBC (Auto) 0-5 (0-5) /hpf Urine RBC (Auto) 0-2 (0-2) /hpf U Hyaline Cast (Auto) 0-2 (0-2) /lpf U Epithel Cells (Auto) 3-5 H (0-2) /hpf Urine Bacteria (Auto) None Seen (None Seen) Urine Comment Administered Medications Discontinued Medications Aspirin (Aspirin 81 Mg Chew) 324 mg PO NOW STA Stop: 03/07/25 22:29 Last Admin: 03/07/25 22:59 Dose: 324 mg Documented By: NAHUM Clopidogrel Bisulfate (Clopidogrel Bisulfate 300 Mg Tab) 300 mg PO NOW STA Stop: 03/07/25 22:29 Last Admin: 03/07/25 23:01 Dose: 300 mg Documented By: NAHUM Ioversol (Optiray 320 125ml) 115 ml IV ONCE ONE Stop: 03/07/25 19:35 Last Admin: 03/07/25 19:35 Dose: 115 ml Documented By: ARMANDO Lorazepam (Lorazepam 1 Mg/1 Ml Syr Ed Inj Use) 0.25 mg IV NOW STA Stop: 03/07/25 22:39 Last Admin: 03/07/25 23:05 Dose: 0.25 mg Documented By: NAHUM Imaging Data Radiologist's Impression: Head CT 03/07/25 18:46 CT head angiogram with and without IV contrast History: TIA Comparison: None Technique: Using multidetector thin collimation helical acquisition technique, axial, coronal and sagittal CT images from the skull base to the vertex were obtained without intravenous contrast. CTA of the head performed after the administration of IV contrast. Dose reduction techniques were achieved by using automatic exposure control and/or adjustment of mA and/or kV according to patient size and/or use of iterative reconstruction technique. Findings: No intracranial hemorrhage, mass-effect, or midline shift. The ventricles are proportionate to the cerebral sulci. The hartman to white matter differentiation of the cerebral hemispheres is preserved. The basal cisterns are patent. No change in a 9 mm extra-axial calcified lesion overlying the high right parietal lobe since at least 2018, possibly a meningioma. Moderate age-related changes. The visualized paranasal sinuses are clear. Mastoid air cells are clear. CTA shows no large vessel occlusion or evidence for hemodynamically significant stenosis, or aneurysm of the arteries of the head. Impression: No acute intracranial pathology. Normal CTA of the head. Electronically signed by Gilmar Baptiste 03-07-2025 8:57 PM Head CTA 03/07/25 18:46 CT head angiogram with and without IV contrast History: TIA Comparison: None Technique: Using multidetector thin collimation helical acquisition technique, axial, coronal and sagittal CT images from the skull base to the vertex were obtained without intravenous contrast. CTA of the head performed after the administration of IV contrast. Dose reduction techniques were achieved by using automatic exposure control and/or adjustment of mA and/or kV according to patient size and/or use of iterative reconstruction technique. Findings: No intracranial hemorrhage, mass-effect, or midline shift. The ventricles are proportionate to the cerebral sulci. The hartman to white matter differentiation of the cerebral hemispheres is preserved. The basal cisterns are patent. No change in a 9 mm extra-axial calcified lesion overlying the high right parietal lobe since at least 2017, possibly a meningioma. Moderate age-related changes. The visualized paranasal sinuses are clear. Mastoid air cells are clear. CTA shows no large vessel occlusion or evidence for hemodynamically significant stenosis, or aneurysm of the arteries of the head. Impression: No acute intracranial pathology. Normal CTA of the head. Electronically signed by Gilmar Baptiste 03-07-2025 8:57 PM Neck CTA 03/07/25 18:46 CT angiogram of the neck Provided History: TIA Comparison: None Technique: NECK CTA: During rapid bolus intravenous injection of nonionic contrast material, axial images were obtained using thin collimation multidetector helical technique from the base of the neck through the base of the skull. This CT angiogram data was reconstructed at thin intervals with mild overlap. 3D reconstructions were obtained. The axial source images, multiplanar reformations, 3D reconstructions in both maximum intensity projection display and volume rendered models were reviewed. Dose reduction techniques were achieved by using automatic exposure control and/or adjustment of mA and/or kV according to patient size and/or use of iterative reconstruction technique. Findings: Neck CTA demonstrates no stenosis of the major cervical arteries. The origins of the great vessels from the aortic arch are patent. The normal distal right internal carotid artery measures 5 mm. The normal distal left internal carotid artery measures 5 mm. No mass is noted within the visualized portions of the cervical soft tissues or lung apices. Impression: Neck CTA demonstrates no stenosis of the major cervical arteries. Electronically signed by Gilmar Baptiste 03-07-2025 8:42 PM Discharge Plan Visit Data Chief Complaint: TIA Symptoms Stated Complaint: POSS TIA SX, SLURRED SPEECH, CONFUSION ED Provider: Ambar Mir Discharge Problem: TIA (transient ischemic attack), Bigeminy Patient Disposition: Admitted As Inpatient Condition: Fair Discharge Instructions Interventions: ED Discharge Assessment Last Done: 03/07/25 23:24
[2025-03-07 20:12] LABS: INR 1.1 (0.9-1.1); Partial Thromboplastin Time 26 Seconds (21-31); Prothrombin Time 11.3 Seconds (9.0-12.0)
[2025-03-07 20:32] LABS: Appearance Urine Clear (Clear); Bacteria Urine Automated None Seen (None Seen); Cast Urine Automated 0-2 /lpf (0-2); Glucose Urine UA Negative (Negative); RBC Urine Automated 0-2 /hpf (0-2); WBC Urine Automated 0-5 /hpf (0-5)
--- NOTE | 2025-03-07 20:42 | CT Scan Report ---
CT angiogram of the neck Provided History: TIA Comparison: None Technique: NECK CTA: During rapid bolus intravenous injection of nonionic contrast material, axial images were obtained using thin collimation multidetector helical technique from the base of the neck through the base of the skull. This CT angiogram data was reconstructed at thin intervals with mild overlap. 3D reconstructions were obtained. The axial source images, multiplanar reformations, 3D reconstructions in both maximum intensity projection display and volume rendered models were reviewed. Dose reduction techniques were achieved by using automatic exposure control and/or adjustment of mA and/or kV according to patient size and/or use of iterative reconstruction technique. Findings: Neck CTA demonstrates no stenosis of the major cervical arteries. The origins of the great vessels from the aortic arch are patent. The normal distal right internal carotid artery measures 5 mm. The normal distal left internal carotid artery measures 5 mm. No mass is noted within the visualized portions of the cervical soft tissues or lung apices. Impression: Neck CTA demonstrates no stenosis of the major cervical arteries. Electronically signed by Gilmar Baptiste 03-07-2025 8:42 PM
--- NOTE | 2025-03-07 20:58 | CT Scan Report ---
CT head angiogram with and without IV contrast History: TIA Comparison: None Technique: Using multidetector thin collimation helical acquisition technique, axial, coronal and sagittal CT images from the skull base to the vertex were obtained without intravenous contrast. CTA of the head performed after the administration of IV contrast. Dose reduction techniques were achieved by using automatic exposure control and/or adjustment of mA and/or kV according to patient size and/or use of iterative reconstruction technique. Findings: No intracranial hemorrhage, mass-effect, or midline shift. The ventricles are proportionate to the cerebral sulci. The hartman to white matter differentiation of the cerebral hemispheres is preserved. The basal cisterns are patent. No change in a 9 mm extra-axial calcified lesion overlying the high right parietal lobe since at least 2018, possibly a meningioma. Moderate age-related changes. The visualized paranasal sinuses are clear. Mastoid air cells are clear. CTA shows no large vessel occlusion or evidence for hemodynamically significant stenosis, or aneurysm of the arteries of the head. Impression: No acute intracranial pathology. Normal CTA of the head. Electronically signed by Gilmar Baptiste 03-07-2025 8:57 PM
--- NOTE | 2025-03-07 21:55 | History & Physical Report ---
Date of Service March 07, 2025 Assessment & Plan (1) TIA (transient ischemic attack): Plan 79-year-old female PMHx obesity, prediabetes, OA, history of TIAs, and HTN presenting for visual disturbances and incoherent speech for approximate 30 minutes a day of arrival. Overall labs are grossly unremarkable with exception of mildly elevated glucose and alkaline phosphatase. UA is without infection. Head CT, neck CTA, and head CTA are without acute findings. Admission for further workup of suspected TIA. R/o CVA. #TIA Suspected TIA, with prior history of such (2022); LKW 1730. No neuro deficits on exam at time of admission. ABCD2 score 4 (age, BP, speech disturbances, duration of symptoms). Pt back to baseline at time of admission. - CBC, PT/INR, and CMP grossly unremarkable; troponin 9.5 - EKG NSR - CT head WNL - CTA head/neck WNL - Echo pending - Lipids 2022 WNL, pending repeat am; on atorvastatin 10 mg --> Increase to 40mg daily - ASA + Plavix daily -- ASA 324mg po + Plavix 300mg po now, continue ASA 81mg + Plavix 75mg daily x 21 days - Permissive hypertension -- pending MRI - MRI pending #HTN- Irbesartan - hold to allow for permissive HTN, pending MRI #GERD- Pantoprazole - continue #Obesity- Zepbound weekly - hold #OA/pain- Tramadol prn; PDMP independently reviewed - Hold at time of admission given alteration in mental status earlier in day, add back as appropriate Dispo: Admit, PCU VTE Prophylaxis: SCDs This document was dictated utilizing [employer]. Please excuse any grammatical errors that may be secondary to use of this software. Admission and Anticipated Discharge Date Admission Date: 03/07/2025 History of Present Illness Chief Complaint: TIA symptoms Primary Care Provider: Ramakrishna Tenorio DO 79-year-old female PMHx obesity, prediabetes, OA, history of TIAs, and HTN presenting for visual disturbances and incoherent speech for approximate 30 m inutes a day of arrival. Patient's last known well was 1730 the day of arrival. Reports that she was watching the dscout with her friends and she suddenly "could not see her at my friend's face." She is unable to further clarify exactly what she meant by this, but she states that she did try to put her hand over her eyes alternating sides to see if it was 1 eye versus the other and she could not tell. She states that she can only see some of her friends face but that her eyes looked weird, still unable to clarify further what exactly she was seeing. She states that she gone to her car and planned on going home whenever she started driving, she just went in 3 circles [address] and passed her house because she was unable to find it. On the third time around the block, her friends noticed that she seemed confused and stood in her driveway to help guide her to her house. The patient states that she saw her friend standing in her driveway and that/she knew that it was her house. She states that her friends were called her having gibberish speech, but she does not remember this. To the patient's knowledge, she believes that this episode lasted 30 to 45 minutes but she is unsure. Her son notes that it was approximately 10 to 15 minutes in duration from what he was told. He she does have a history of a TIA approximately 2 years [employer] in which she had similar sy mptoms of visual disturbances and garbled speech. She denies any additional neurological symptoms to include headache, numbness/tingling, slurred speech, facial droop, neuro deficits, or weakness in any of her extremities. She is denying chest pain, SOB, palpitations, abdominal pain, N/V/D/C, numbness/tingling, fever/chills, URI symptoms, LUTS, weakness, syncope, or falls. ED evaluation for CBC without leukocytosis, stable H&H; PT/INR WNL; CMP BUN/creatinine ratio 24, glucose 126, alkaline phosphatase 119; UA negative for infection; head CT without acute findings; head CTA no acute pathology; neck CTA no stenosis of the major cervical arteries; EKG NSR with moderate voltage criteria for LVH at [address] Carranza's attestation for adjustments/additions to treatment plan. Allergies Allergy/AdvReac Type Severity Reaction Status Date / Time No Known Allergies Allergy Mild Verified 03/07/25 20:20 Home Medications Medication Instructions Recorded Confirmed Type atorvastatin 10 mg tablet 10 mg PO HS 11/30/20 03/07/25 History irbesartan 150 mg tablet 150 mg PO QAM 11/30/20 03/07/25 History pantoprazole 40 mg tablet,delayed 40 mg PO QAM 11/30/20 03/07/25 History release vit C 226 mg-vit E 90 mg-copper 1 cap PO QAM 11/30/20 03/07/25 History 0.8 mg-zinc oxide-lutein 5 mg capsule (PreserVision Lutein) cholecalciferol (vitamin D3) 25 50 mcg PO .2-3XWK 05/09/22 03/07/25 History mcg (1,000 unit) capsule (Vitamin D3) tramadol 25 mg tablet 25 mg PO Q6H PRN Pain 08/13/24 03/07/25 History diphenhydramine 25 1 tab PO HS 08/28/24 03/07/25 History mg-acetaminophen 500 mg tablet (Acetaminophen PM) ergocalciferol (vitamin D2) 1,250 50,000 unit PO WK 03/07/25 03/07/25 History mcg (50,000 unit) capsule (Vitamin D2) [id number]-[id number]-texfmq 1 tab PO DAILY 03/07/25 03/07/25 History tablet (Multivitamin 50 Plus tablet) tirzepatide (weight loss) 2.5 2.5 mg subcut WK 03/07/25 03/07/25 History mg/0.5 mL subcutaneous pen injector (Zepbound) Past Med/Surg History Problem List (Updated 03/08/25 @ 00:19 by Ambar Mir MD) Bigeminy (Acute) TIA (transient ischemic attack) (Acute) Nocturia Bladder ulcer Cervical stenosis (uterine cervix) Thickened endometrium Urinary frequency Pelvic pressure in female Encounter for pre-operative examination Indigestion Arthritis Medical History Bladder ulcer Osteoarthritis Prediabetes Per PCP records Hx of Clostridium difficile infection "many years ago", dx [facility], tx w/abx. GERD (gastroesophageal reflux disease) Well controlled and stable History of TIA (transient ischemic attack) ~2016>no residual effects HLD (hyperlipidemia) HTN (hypertension) Surgical History S/P cystoscopy History of hysteroscopy 05/2022 [facility] H/O dilation and curettage 2009, polyp Status post bilateral salpingo-oophorectomy (BSO) left serous cystadenoma 2008 H/O tubal ligation History of cataract surgery left/right History of cholecystectomy History of umbilical hernia repair during laparoscopy, surgeon cut into umbilical mesh from previous hernia sx, hospitalized for 8 including another repair of the umbilical hernia History of esophagogastroduodenoscopy (EGD) History of colonoscopy Family History Mother Hypertension Father COPD (chronic obstructive pulmonary disease) Heart disease Myocardial infarction Brother Coronary heart disease Other Colorectal cancer Diabetes No family history of adverse response to anesthesia Denies family history of Ovarian cancer Breast cancer Social History Smoking Status: Never smoker Second Hand Exposure: No; Do You Dip or Chew Tobacco: No; Hx Alcohol Use: No Hx Substance Use: No Preferred Language: Nepali Communication Ability: Effective Visual Impairment: No Limitations General Medical Practitioner Required: No Beliefs That Will Affect Care: None Current Living Situation: Alone Feels Safe at Home: Yes Safety Concerns: Feels Safe At This Time Assistive Devices: Glasses Review of Systems Review of Systems: All systems reviewed & are unremarkable except as noted in Subjective Physical Exam Physical Exam: General: No acute distress Skin: Warm and dry Head: Normocephalic, atraumatic Eyes: PERRL, conjunctivae clear, sclera non-icteric ENT: External ear and ear canal without swelling; nose atraumatic; good dentition, tongue normal appearance, pharynx normal Neck: Supple, no LAD Cardio: RRR, no M/G/R, S1 and S2 normal Resp: No respiratory distress, Lungs CTA in all lobes bilaterally, no wheezes, rales, or rhonchi Abdomen: Soft, symmetric, nontender; No masses or hepatosplenomegaly; Bowel sounds normoactive MSK: No deformities; pulses palpable and equal; no edema. Neuro: II- PERRL, no VF deficits III, IV, - EOMs intact, no deviation, no nystagmus V- Normal sensation in all locations VII- No asymmetry, no nasolabial fold flattening VIII- Normal hearing to speech IX, X- Normal palatal elevation, no ulnar deviation XI- 5/5 head turn + shoulder shrug bilaterally XII- Midline tongue protrusion Motor: 5/5 strength throughout BUE/BLE; no pronator drift Reflexes: WNL throughout, no clonus Sensory: Normal sensation throughout, no hemineglect, Romberg absent Coordination: Normal [id number]-go-[id number], no tremor Gait: Unable to assess; no complaints Psych: Appropriate mood and affect; good judgement and insight. Results & Data Results & Data Vital Signs (Past 12 Hours) Vital Signs Temp Pulse Resp BP Pulse Ox O2 Del Method 03/07/25 20:32 95 H 19 173/76 H 96 03/07/25 19:44 99 H 03/07/25 19:00 81 17 144/86 H 95 03/07/25 18:42 84 03/07/25 18:27 36.8 C 71 20 151/80 H 96 Room Air Laboratory Results 03/07/25 03/07/25 03/07/25 20:11 18:51 18:48 WBC 9.21 RBC 4.94 Hgb 13.5 Hct 42.1 MCV 85.2 MCH 27.3 MCHC 32.1 RDW Std Deviation 46.5 H RDW Coeff of Brittany 15.1 H Plt Count 262 MPV 10.9 Immature Gran % (Auto) 0.2 Neut % (Auto) 72.5 Lymph % (Auto) 14.0 Morrow % (Auto) 8.1 Eos % (Auto) 5.0 Baso % (Auto) 0.2 Neut # (Auto) 6.67 H Lymph # (Auto) 1.29 Morrow # (Auto) 0.75 H Eos # (Auto) 0.46 Baso # (Auto) 0.02 Immature Gran # (Auto) 0.02 PT 11.3 INR 1.1 APTT 26 PTT Ratio 1.0 Sodium 139 Potassium 3.7 Chloride 105 Carbon Dioxide 26 Anion Gap 8 BUN 23 Creatinine 0.96 Est Cr Clr Drug Dosing 50.3 eGFR 60.18 BUN/Creatinine Ratio 24.0 H Glucose 126 H POC Glucose 123 H Calcium 9.4 Magnesium 1.9 Total Bilirubin 0.5 AST 27 ALT 22 Alkaline Phosphatase 119 H Troponin I High Sens 9.5 Total Protein 6.7 Albumin 3.7 Globulin 3.0 Albumin/Globulin Ratio 1.2 Urine Color Yellow Urine Appearance Clear Urine pH 6.0 Ur Specific [place] 1.026 Urine Protein Negative Urine Glucose (UA) Negative Urine Ketones Negative Urine Blood Trace H Urine Nitrite Negative Urine Bilirubin Negative Urine Urobilinogen Negative Ur Leukocyte Esterase Trace H Urine WBC (Auto) 0-5 Urine RBC (Auto) 0-2 U Hyaline Cast (Auto) 0-2 U Epithel Cells (Auto) 3-5 H Urine Bacteria (Auto) None Seen Urine Comment Diagnostic Findings Head CT 03/07/25 18:46 CT head angiogram with and without IV contrast History: TIA Comparison: None Technique: Using multidetector thin collimation helical acquisition technique, axial, coronal and sagittal CT images from the skull base to the vertex were obtained without intravenous contrast. CTA of the head performed after the administration of IV contrast. Dose reduction techniques were achieved by using automatic exposure control and/or adjustment of mA and/or kV according to patient size and/or use of iterative reconstruction technique. Findings: No intracranial hemorrhage, mass-effect, or midline shift. The ventricles are proportionate to the cerebral sulci. The hartman to white matter differentiation of the cerebral hemispheres is preserved. The basal cisterns are patent. No change in a 9 mm extra-axial calcified lesion overlying the high right parietal lobe since at least 2017, possibly a meningioma. Moderate age-related changes. The visualized paranasal sinuses are clear. Mastoid air cells are clear. CTA shows no large vessel occlusion or evidence for hemodynamically significant stenosis, or aneurysm of the arteries of the head. Impression: No acute intracranial pathology. Normal CTA of the head. Electronically signed by Gilmar Baptiste 03-07-2025 8:57 PM Head CTA 03/07/25 18:46 CT head angiogram with and without IV contrast History: TIA Comparison: None Technique: Using multidetector thin collimation helical acquisition technique, axial, coronal and sagittal CT images from the skull base to the vertex were obtained without intravenous contrast. CTA of the head performed after the administration of IV contrast. Dose reduction techniques were achieved by using automatic exposure control and/or adjustment of mA and/or kV according to patient size and/or use of iterative reconstruction technique. Findings: No intracranial hemorrhage, mass-effect, or midline shift. The ventricles are proportionate to the cerebral sulci. The hartman to white matter differentiation of the cerebral hemispheres is preserved. The basal cisterns are patent. No change in a 9 mm extra-axial calcified lesion overlying the high right parietal lobe since at least 2018, possibly a meningioma. Moderate age-related changes. The visualized paranasal sinuses are clear. Mastoid air cells are clear. CTA shows no large vessel occlusion or evidence for hemodynamically significant stenosis, or aneurysm of the arteries of the head. Impression: No acute intracranial pathology. Normal CTA of the head. Electronically signed by Gilmar Baptiste 03-07-2025 8:57 PM Neck CTA 03/07/25 18:46 CT angiogram of the neck Provided History: TIA Comparison: None Technique: NECK CTA: During rapid bolus intravenous injection of nonionic contrast material, axial images were obtained using thin collimation multidetector helical technique from the base of the neck through the base of the skull. This CT angiogram data was reconstructed at thin intervals with mild overlap. 3D reconstructions were obtained. The axial source images, multiplanar reformations, 3D reconstructions in both maximum intensity projection display and volume rendered models were reviewed. Dose reduction techniques were achieved by using automatic exposure control and/or adjustment of mA and/or kV according to patient size and/or use of iterative reconstruction technique. Findings: Neck CTA demonstrates no stenosis of the major cervical arteries. The origins of the great vessels from the aortic arch are patent. The normal distal right internal carotid artery measures 5 mm. The normal distal left internal carotid artery measures 5 mm. No mass is noted within the visualized portions of the cervical soft tissues or lung apices. Impression: Neck CTA demonstrates no stenosis of the major cervical arteries. Electronically signed by Gilmar Baptiste 03-07-2025 8:42 PM ECG Additional Comments: NSR, moderate voltage criteria for LVH 70 bpm, NV 160, QRS 84, QT/QTc 378/430, PRT 23/-26/84 Code Status & VTE Plan Code Status Full Supervising Physician Co-Signing Physician Notes Patient seen and examined, chart reviewed, case discussed with JUANCARLOS Anna and I agree with the assessment and plan as above. In brief, patient is a 79yo female presenting with episode of confusion, garbled speech, possible TIA. Symptoms have since resolved to completion. On exam she is afebrile, HD stable, NAD Skin - no rash HEENT - MMM, Neck supple Heart - +S1/S2, regular, no m/r/g Lungs- CTA Abd - soft, NT/ND Neuro -no acute findings Assessment/Plan: -check MRI brain, 2D echo -Check lipid pane and HgbA1C -DAPT with ASA and Plavix for 21 days then single agent daily - ABCD2 score=4 indicating high risk TIA -Increase Atorvastatin to 40mg daily -Remainder as above PG Care Time/CCT Total # of Minutes Spent Total Time Spent with Patient: Total time spent is greater than 50% in coordination of care (as documented) at patient's floor/unit and/or counseling patient: Coding Level of Care Code 20647 INT INP/OBS CARE 3/75MIN Diagnoses TIA (transient ischemic attack) G45.9
[2025-03-07] MEDS ORDERED: LORazepam Inj 0.25 MG in SYRINGE 0.125 ML IV ONE (22:34)
[2025-03-07] MEDS: ASPIRIN 81 MG CHEW PO STA (22:59)
[2025-03-07] MEDS: CLOPIDOGREL BISULFATE 300 MG TAB PO STA (23:01)
[2025-03-07] MEDS: LORazepam 1 MG/1 ML SYR ED Inj Use IV STA (23:05)
[2025-03-07] MEDS ORDERED: ONDANSETRON INJ 2 MG/ML 2 ML VIAL IV PRN (23:34)
[2025-03-07] MEDS ORDERED: ACETAMINOPHEN 325 MG TAB PO PRN (23:34)
[2025-03-07] MEDS ORDERED: POLYETHYLENE (MIRALAX) 17 GM PACK PO PRN (23:34)
[2025-03-07] MEDS ORDERED: INFLUENZA VACC TS2025-26(65y+)/PF (IIV3) 0.5mL Syr IM ONE (23:47)
[2025-03-08 08:12] LABS: Hematocrit (blood only) 40.8 % (37.0-47.0); Hemoglobin 13.0 g/dl (12.0-16.0); Mean Corpuscular Hemoglobin 27.1 pg (25.0-34.0); Mean Corpuscular Volume 85.2 fL (80.0-100.0); Platelet Count 227 K/uL (130-400); RDW Standard Deviation 46.5 fL (36.4-46.3); Red Blood Count 4.79 M/uL (4.20-5.40); White Blood Count 6.21 K/ul (4.8-10.8)
[2025-03-08 08:29] LABS: Anion Gap 5.0 (3-11); Blood Urea Nitrogen 18.0 mg/dl (6-23); Calcium 8.7 mg/dl (8.6-10.3); Carbon Dioxide 27.0 mmol/L (21-32); Chloride 110.0 mmol/L (98-107); Cholesterol 106.0 mg/dl (0-200); Creatinine Clr Calc Pharmacy 74.1 ml/min; Glucose 92.0 mg/dl (70-99(Fasting)); HDL Cholesterol 43.0 mg/dl; Potassium 3.8 mmol/L (3.5-5.1); Sodium 142.0 mmol/L (136-145); Triglycerides 80.0 mg/dl (0-150)
[2025-03-08] MEDS: CLOPIDOGREL BISULFATE 75 MG TAB PO SCH (09:27)
[2025-03-08] MEDS: ASPIRIN 81 MG ECTAB PO SCH (09:27)
[2025-03-08] MEDS: LORazepam Inj 0.25 MG in SYRINGE 0.125 ML IV PRN (09:29)
--- NOTE | 2025-03-08 11:07 | Magnetic Resonance Report ---
EXAM: MR brain wo con CLINICAL HISTORY: TIA TECHNIQUE: MRI of the brain was performed without contrast, with multiplanar sequences obtained. COMPARISON: Comparison is made with prior imaging studies dated 10/22/2018. The current study shows: FINDINGS: No definite sizable foci of abnormal diffusion restriction are noted. Sheets of abnormal signal intensities are seen in the periventricular deep white matter, eliciting high T2 and FLAIR signals, denoting small artery disease. Multiple foci of abnormal signal are seen scattered within the white matter of both frontal, parietal, and occipital regions, as well as both cerebellar regions, more on the right. These foci elicit high signal on T2 and FLAIR images, with some of them showing low signal on T1-weighted imaging. They are not surrounded by edema or exerting a mass effect. Mild symmetrical dilatation of the ventricular system is present. There are widened cortical sulci, Sylvian fissures, and extra-axial cerebrospinal fluid (CSF) spaces. No midline shift is identified. No intra- or extra-axial areas of fresh blood signal intensities or its degeneration products are seen. The brainstem appears normal without evidence of mass lesions or signal abnormalities. Cranial Nerves: There is normal course and appearance of cranial nerves identified. Vessels: There is no evidence of vascular malformations or aneurysms. Intracranial arteries and veins appear normal without evidence of stenosis or occlusion. Orbits and Skull Base: The orbits and skull base structures are normal without evidence of abnormalities. IMPRESSION: 1. No acute intracranial abnormality identified, infarction, or hemorrhage. 2. Chronic white matter ischemic changes with age-matched brain atrophic changes. 3. No gross interval changes since the last study. Electronically signed by Frederic Leahy 03-08-2025 11:06 AM
--- NOTE | 2025-03-08 11:31 | XCELERA ---
[id number]
[2025-03-08 11:44] VITALS: BP 135/84; PULSE 73; RESP 23; TEMP 97.7; O2SAT 95
--- NOTE | 2025-03-08 12:01 | Electrocardiogram Report ---
Test Reason : Blood Pressure : */* mmHG Vent. Rate : 92 BPM Atrial Rate : 92 BPM P-R Int : 164 ms QRS Dur : 80 ms QT Int : 358 ms P-R-T Axes : 46 -20 109 degrees QTcB Int : 442 ms Sinus rhythm with frequent Premature ventricular complexes in a pattern of bigeminy Possible Left atrial enlargement Left ventricular hypertrophy with repolarization abnormality ( R in aVL ) Cannot rule out Septal infarct (cited on or before 02-Sep-2024) Abnormal ECG When compared with ECG of 07-Mar-2025 18:44, (unconfirmed) Premature ventricular complexes are now Present Questionable change in initial forces of Septal leads T wave inversion more evident in Lateral leads Confirmed by Porfirio Hart ([id number]) on 03/08/2025 12:01:32 PM Referred By: REFERRED SELF Confirmed By: Porfirio Hart
--- NOTE | 2025-03-08 14:38 | Discharge Summary ---
Discharge Summary Date of Service March 08, 2025 Principal Dx & Hospital Course #1 = Principal Diagnosis (1) TIA (transient ischemic attack): Plan 79-year-old female PMHx obesity, prediabetes, OA, history of TIAs, and HTN presenting for visual disturbances and incoherent speech for approximate 30 minutes a day of arrival. Overall labs are grossly unremarkable with exception of mildly elevated glucose and alkaline phosphatase. UA is without infection. Head CT, neck CTA, and head CTA are without acute findings. Admission for further workup of suspected TIA. R/o CVA. #TIA Suspected TIA, with prior history of such (2022); LKW 1730. No neuro deficits on exam at time of admission. ABCD2 score 4 (age, BP, speech disturbances, duration of symptoms). Pt back to baseline at time of admission. - CBC, PT/INR, and CMP grossly unremarkable; troponin 9.5 - EKG NSR - CT head WNL - CTA head/neck WNL - Echo pending - Lipids 2022 WNL, pending repeat am; on atorvastatin 10 mg --> Increase to 40mg daily - ASA + Plavix daily -- ASA 324mg po + Plavix 300mg po now, continue ASA 81mg + Plavix 75mg daily x 21 days - Permissive hypertension -- pending MRI - MRI pending #HTN- Irbesartan - hold to allow for permissive HTN, pending MRI #GERD- Pantoprazole - continue #Obesity- Zepbound weekly - hold #OA/pain- Tramadol prn; PDMP independently reviewed - Hold at time of admission given alteration in mental status earlier in day, add back as appropriate Dispo: Admit, PCU VTE Prophylaxis: SCDs This document was dictated utilizing [employer]. Please excuse any grammatical errors that may be secondary to use of this software. Admission HPI Per Admitting Provider 79-year-old female PMHx obesity, prediabetes, OA, history of TIAs, and HTN presenting for visual disturbances and incoherent speech for approximate 30 minutes a day of arrival. Patient's last known well was 1730 the day of arrival. Reports that she was watching the [employer] game with her friends and she suddenly "could not see her at my friend's face." She is unable to further clarify exactly what she meant by this, but she states that she did try to put her hand over her eyes alternating sides to see if it was 1 eye versus the other and she could not tell. She states that she can only see some of her friends face but that her eyes looked weird, still unable to clarify further what exactly she was seeing. She states that she gone to her car and planned on going home whenever she started driving, she just went in [address] circles [address] and passed her house because she was unable to find it. On the third time around the block, her friends noticed that she seemed confused and stood in her driveway to help guide her to her house. The patient states that she saw her friend standing in her driveway and that/she knew that it was her house. She states that her friends were called her having gibberish speech, but she does not remember this. To the patient's knowledge, she believes that this episode lasted 30 to 45 minutes but she is unsure. Her son notes that it was approximately 10 to 15 minutes in duration from what he was told. He she does have a history of a TIA approximately 2 years [employer] in which she had similar symptoms of visual disturbances and garbled speech. She denies any additional neurological symptoms to include headache, numbness/tingling, slurred speech, facial droop, neuro deficits, or weakness in any of her extremities. She is denying chest pain, SOB, palpitations, abdominal pain, N/V/D/C, numbness/tingling, fever/chills, URI symptoms, LUTS, weakness, syncope, or falls . ED evaluation for CBC without leukocytosis, stable H&H; PT/INR WNL; CMP BUN/creatinine ratio 24, glucose 126, alkaline phosphatase 119; UA negative for infection; head CT without acute findings; head CTA no acute pathology; neck CTA no stenosis of the major cervical arteries; EKG NSR with moderate voltage criteria for LVH at [address] Carranza's attestation for adjustments/additions to treatment plan. Discharge Plan Discharge Items Patient Disposition: Home - Self-Care Reason For Visit: TIA, R/O CVA Discharge Diagnosis: TIA Condition on Discharge: Fair Activity: Resume your previous activity Non-emergency contact: Primary Care Provider Call non-emergency contact if: you have any medication questions Follow-up/Referrals: Ramakrishna Tenorio, [Primary Care Provider] - Diet: Heart Healthy Addtl Attending Provider Instructions: Dual antiplatelet therapy with Aspirin and plavix daily for 21 days, then only continue with Aspirin. Will recommend followup with PCP in 1-2 weeks. May benefit from followup with [facility] in about a month. Risk Factors for Stroke: You can reduce your chances of stroke by working with your medical provider to adopt a healthy lifestyle. Some specific ways to lower your chance of stroke are: * If you are a smoker, now is the time to stop smoking cigarettes * If you are diabetic, improve the control of your blood sugars * Avoid excessive amounts of alcohol * Control high blood pressure * Lose weight if you are overweight * Be sure to lead an active lifestyle * Eat a healthy diet low in salt, cholesterol and fat You should know about other risk factors for stroke that you are unable to control. These include: * Age 55 years or older * Family History of Stroke, Mini stroke or Heart Attack * Sickle Cell Disease Follow Up: It is important for you to keep your follow up appointments with your medical provider. Who to Call and When: Medical Emergencies: Call 911 immediately if you experience any of the following warning signs and symptoms of Stroke: * Sudden numbness or weakness of the face, arm or leg, especially on one side of the body * Sudden confusion, trouble speaking or understanding * Sudden trouble seeing in one or both eyes * Sudden trouble walking, dizziness, loss of balance or coordination * Sudden severe headache with no cause Do not delay calling 911 if you experience any warning signs or symptoms of a stroke. Delay in seeking medical attention may affect what treatments can be given to you. . Pending Studies at Discharge: No Stand-Alone Forms: [facility], Smoking Cessation Medications and DC Order Prescriptions: New atorvastatin 40 mg Tablet 40 mg PO HS Qty: 30 0RF clopidogrel 75 mg Tablet 75 mg PO QAM Qty: 21 0RF aspirin 81 mg Tablet,Delayed Release (Dr/Ec) 81 mg PO DAILY Qty: 30 0RF Continued tramadol 25 mg tablet 25 mg PO Q6H PRN (Reason: Pain) pantoprazole 40 mg Tablet,Delayed Release (Dr/Ec) 40 mg PO QAM irbesartan 150 mg Tablet 150 mg PO QAM PreserVision Lutein 226 mg-200 unit -5 mg-0.8 mg Capsule 1 cap PO QAM cholecalciferol (vitamin D3) [Vitamin D3] 25 mcg (1,000 unit) Capsule 50 mcg PO .2-3XWK diphenhydramine-acetaminophen [Acetaminophen PM] 25-500 mg Tablet 1 tab PO HS ergocalciferol (vitamin D2) [Vitamin D2] 1,250 mcg (50,000 unit) capsule 50,000 unit PO WK Rx Instructions: SUNDAYS Multivitamin 50 Plus Tablet 1 tab PO DAILY Zepbound 2.5 mg/0.5 mL Pen Injector 2.5 mg SUBCUT WK Rx Instructions: WEDNESDAYS Discontinued atorvastatin 10 mg Tablet 10 mg PO HS Discharge Orders: Discharge Order (Routine); Ordered 03/08/25 Ordered By: Gregory Montoya Admission Data Admit Date/Time: 03/07/25 22:24 Attending Provider: Gregory Montoya Admit Provider: Kacey Carranza Primary Care Provider: Ramakrishna Tenorio Other Interventions: Discharge Summary Assessment (RN) Last Done: 03/08/25 13:45 Hospital Stay Data Diagnostic Imagining Performed 03/07/25 18:46 CT angio head w con Stat CT angio neck with con Stat CT head/brain wo con Stat 03/08/25 09:30 MR brain wo con Urgent Pending Results Patient Have Any Pending Studies at Discharge: No Discharge Instructions Given to Patient (Per Discharging Provider) Dual antiplatelet therapy with Aspirin and plavix daily for 21 days, then only continue with Aspirin. Will recommend followup with PCP in 1-2 weeks. May benefit from followup with [facility] in about a month. Risk Factors for Stroke: You can reduce your chances of stroke by working with your medical provider to adopt a healthy lifestyle. Some specific ways to lower your chance of stroke are: * If you are a smoker, now is the time to stop smoking cigarettes * If you are diabetic, improve the control of your blood sugars * Avoid excessive amounts of alcohol * Control high blood pressure * Lose weight if you are overweight * Be sure to lead an active lifestyle * Eat a healthy diet low in salt, cholesterol and fat You should know about other risk factors for stroke that you are unable to control. These include: * Age 55 years or older * Family History of Stroke, Mini stroke or Heart Attack * Sickle Cell Disease Follow Up: It is important for you to keep your follow up appointments with your medical provider. Who to Call and When: Medical Emergencies: Call 911 immediately if you experience any of the following warning signs and symptoms of Stroke: * Sudden numbness or weakness of the face, arm or leg, especially on one side of the body * Sudden confusion, trouble speaking or understanding * Sudden trouble seeing in one or both eyes * Sudden trouble walking, dizziness, loss of balance or coordination * Sudden severe headache with no cause Do not delay calling 911 if you experience any warning signs or symptoms of a stroke. Delay in seeking medical attention may affect what treatments can be given to you. . Coding Diagnoses TIA (transient ischemic attack) G45.9
[2025-03-08] MEDS ORDERED: ATORVASTATIN 40 MG TAB PO SCH (21:00)
== END 2025-03-08 14:53 | disposition home or self-care (01) ==
LOC: ED 18:25 → 2S 18:25 → SUATTDRO 22:24 → 2S 23:24